=== PATIENT | female | born 1995 | race Caucasian/White ===

== ENCOUNTER 2020-11-07 13:32 | Outpatient (CLI) | payer OTHER, SELFPAY ==
--- NOTE | ~2020-11-07 | US_ITS ---
US breast RT limited DATE: 11/07/2020 14:11 INDICATION: Right breast pain for 6 months at 9:00, worse the past 2 weeks. TECHNIQUE: High resolution ultrasound imaging of the lateral half of the right breast COMPARISON: None FINDINGS: No suspicious mass or shadowing, cyst or other significant sonographic finding is noted. IMPRESSION: BI-RADS Category 1: Negative Reviewed, dictated and finalized at [facility]. Reviewed, dictated and finalized at location A. GAGE PROCESSOR
== END 2020-11-07 13:33 | disposition home or self-care (01) ==
DX: N64.4 Mastodynia (principal)
CPT/HCPCS: 76642

== ENCOUNTER 2023-11-07 08:22 | Emergency (ER) | payer BC, SELFPAY ==
--- NOTE | 2023-11-07 08:30 | ED.URI ---
HPI - URI/Sore Throat General Chief Complaint: Upper Respiratory Infection Stated Complaint: Short of Breath, Wheezing Time Seen by Provider: 11/07/23 08:30 Source: patient Mode of arrival: ambulatory Limitations: no limitations History of Present Illness HPI Narrative: Patient is a 20-year-old female that presents with cough and increased wheezing. Patient has been using her albuterol inhaler, nebulizers, Symbicort, and allergy medicine. Patient is 18 weeks . Has previously seen a heat treater but insurance changed and can no longer see provider. Patient has new PCP appointment on Saturday for referral to pulmonology. Patient denies any fever, chills, congestion, sore throat. Related Data Home Medications Medication Instructions Recorded Confirmed albuterol sulfate 2.5 mg/3 mL mg 11/07/23 (0.083 %) solution for nebulization albuterol sulfate 90 mcg/actuation inhalation 11/07/23 aerosol inhaler budesonide-formoterol HFA 160 inhalation 11/07/23 mcg-4.5 mcg/actuation aerosol inhaler epinephrine 0.3 mg/0.3 mL 11/07/23 injection, auto-injector montelukast 10 mg tablet mg 11/07/23 sertraline 50 mg tablet mg 11/07/23 Allergies Allergy/AdvReac Type Severity Reaction Status Date / Time Sulfa (Sulfonamide Allergy Unknown unknown Verified 06/03/19 19:51 Antibiotics) Review of Systems Review of Systems: All systems reviewed & are unremarkable except as noted in HPI and below Constitutional: Constitutional: Denies body ache(s), Denies chills, Denies fatigue, Denies fever(s), Denies headache(s), Denies malaise and Denies weakness Eyes: Eyes: Denies blurry vision, Denies itchy eyes and Denies loss of vision ENT: Denies otalgia, Denies headache(s), Denies nasal congestion, Denies sinus pain and Denies sore throat Cardiovascular: Cardiovascular: Denies chest pain, Denies irregular heart rhythm and Denies dyspnea Respiratory: Respiratory: Reports cough, Reports dyspnea and Reports wheezing Gastrointestinal: Gastrointestinal: Denies abdominal pain, Denies diarrhea, Denies nausea and Denies vomiting Musculoskeletal: Musculoskeletal: Denies back pain, Denies myalgias and Denies arthralgias Integumentary/Breasts: Skin/Breast: Denies pruritus and Denies rash Neurologic: Denies headache(s), Denies loss of vision and Denies weakness Psychiatric: Psychiatric: Reports no additional psychiatric complaints Endocrine: Endocrine: Denies fatigue Allergic/Immunologic: Allergic/Immunologic: Denies itchy eyes PMFSH Comments At time of signature, agree with nursing past medical, surgical, social and family history. There is no relevant family history pertinent to the presenting complaint. Exam Const: General: cooperative, healthy appearing, comfortable, no acute distress and well nourished Nutritional Appearance: well nourished Orientation/consciousness: patient oriented x3 Limitations: no limitations HENMT: Head: normal to inspection, normocephalic and atraumatic Ears: hearing grossly normal bilaterally, external ears normal, TM's normal bilaterally, EAC's normal and no periauricular adenopathy Face/Nose/Sinus: Normal external nose present, Normal nasal mucous membranes and turbinates present, normal facial exam, sinuses nontender and face symmetric Face and sinus: normal facial exam, sinuses nontender and face symmetric Mouth: Yes Normal oral and palatal mucosa present, Yes lip normal, Yes tongue normal, Yes Normal salivary glands and ducts present, Yes oropharynx normal and Yes moist mucous membranes Teeth and gingiva: dentition normal Throat: posterior oropharynx normal, tonsils normal and uvula midline Eyes: General: appearance normal, both eyes and all related structures Alignment and Position: alignment normal and position normal Periorbital: periorbital findings normal Eyelids: eyelids normal Pupils: Equal, round and reactive pupils present Neck: Neck: normal visual inspection, full ROM,
[2023-11-07 08:35] VITALS: BP 146/77; PULSE 77; RESP 18; TEMP 36.9; O2SAT 99
== END 2023-11-07 09:00 | disposition home or self-care (01) ==
PROVIDERS: Emergency Provider Nurse Practitioner Family; PCP Family Medicine
DX: O99.512 Diseases of the respiratory system complicating pregnancy, second trimester (principal); Z3A.18 18 weeks gestation of pregnancy; J06.9 Acute upper respiratory infection, unspecified; J45.41 Moderate persistent asthma with (acute) exacerbation; O99.891 Other specified diseases and conditions complicating pregnancy; R05.9 Cough, unspecified
CPT/HCPCS: 99213; G0463

== ENCOUNTER 2024-02-17 08:15 | Emergency (ER) | payer BC, SELFPAY ==
[2024-02-17 08:41] VITALS: BP 153/94; PULSE 80; RESP 20; TEMP 36.2; O2SAT 98
--- NOTE | 2024-02-17 08:44 | ED.ASTHMA ---
HPI - Asthma General Chief Complaint: Asthma Stated Complaint: Wheezing, SOB Time Seen by Provider: 02/17/24 08:50 Source: patient and RN notes reviewed Mode of arrival: ambulatory Limitations: no limitations History of Present Illness HPI Narrative: Your 28-year-old female who is 33 weeks presents with concern for asthma exacerbation. She reports her asthma has been worse over the last 3 days, she has been using her albuterol inhaler or nebulizer about every 2 hours. She has been in touch with her second hand paper machine as well as her power reactor supervisor. They suggested she come to urgent care. It is she last used her nebulized about 1 hour ago. She denies runny nose, reports chronic stuffy nose. Denies fever, aches, chills, sweats. MD complaint: shortness of breath Related Data Home Medications Medication Instructions Recorded Confirmed albuterol sulfate 2.5 mg/3 mL 2.5 mg inhalation PRN PRN 11/07/23 02/17/24 (0.083 %) solution for nebulization Shortness Of Breath Or Wheezing montelukast 10 mg tablet 10 mg PO HS 11/07/23 02/17/24 budesonide 160 mcg-glycopyr 9 2 inh inhalation DAILY 02/17/24 02/17/24 mcg-formot 4.8 mcg/actuation HFA inhaler (Breztri Aerosphere) vit#24-iron amino acid 1 tablet PO DAILY 02/17/24 02/17/24 chelat-folic acid 30 mg-975 mcg tablet Allergies Allergy/AdvReac Type Severity Reaction Status Date / Time Sulfa (Sulfonamide AdvReac Mild Rash Verified 02/17/24 08:30 Antibiotics) Review of Systems Review of Systems: CONSTITUTIONAL: Denies malaise, chills, sweats, or fever. EYES: Denies visual changes, redness, or discharge. ENT: Reports rhinorrhea, congestion, sinus pain, otalgia and sore throat. CARDIOVASCULAR: Denies chest pain, palpitations, or edema. RESPIRATORY: Reports cough, dyspnea, wheeze. MUSCULOSKELETAL: Denies myalgia. NEUROLOGIC: Denies headache. All systems reviewed & are unremarkable except as noted in HPI and below PMFSH Comments At time of signature, agree with nursing past medical, surgical, social and family history. There is no relevant family history pertinent to the presenting complaint Exam Narrative: GENERAL: Well-appearing, well-nourished, and in no acute distress. HEAD: Normocephalic EYES: PERRLA, conjunctivae clear ENT: Nares clear. Mucous membranes moist. No drooling, no hoarseness, no trismus, uvula midline. NECK: Supple. No lymphadenopathy CHEST: Expiratory wheeze throughout, breath sounds equal. No rhonchi, rales, or stridor. No respiratory distress, speaks in full sentences. HEART: Regular rate and rhythm. No murmur heard. SKIN: Warm, dry, no rash. NEURO: Alert and oriented x3. PSYCH: Normal mood and affect Course Course Emergency Course: Patient is aware of diagnosis, understands and agrees to treatment plan. Anticipatory guidance given. Patient agrees to follow-up as directed and is aware of reasons to seek care at the emergency department. Portions of this record may have been created with voice recognition software Level of Care: Express Care Visit Vital Signs Vital signs: Vital Signs Temperature 97.2 F L 02/17/24 08:41 Pulse Rate 80 02/17/24 08:41 Respiratory Rate 20 02/17/24 08:41 Blood Pressure 153/94 H 02/17/24 08:41 Pulse Oximetry 98 02/17/24 08:41 Oxygen Delivery Room Air 02/17/24 08:41 Temperature 97.2 F L 02/17/24 08:41 Pulse Rate 80 02/17/24 08:41 Respiratory Rate 20 02/17/24 08:41 Blood Pressure 153/94 H 02/17/24 08:41 Pulse Oximetry 98 02/17/24 08:41 Oxygen Delivery Room Air 02/17/24 08:41 Reviewed. MDM - Asthma MDM Narrative Medical decision making narrative: Exam findings show no acute concerns or changes; patient is non-toxic appearing and is in no distress. Patient is appropriate for outpatient treatment and follow-up. Lab Data Attestation: I reviewed the patient's lab results. Critical Care Time Critical Care Time Critical Care Time: No Discharg
== END 2024-02-17 08:57 | disposition home or self-care (01) ==
PROVIDERS: Emergency Provider Nurse Practitioner
DX: J45.901 Unspecified asthma with (acute) exacerbation (principal)
CPT/HCPCS: 99213; G0463

== ENCOUNTER 2024-03-12 10:03 | Outpatient (RCR) | payer BC, SELFPAY ==
[2024-03-10 15:09] VITALS: BP 129/80; PULSE 79
[2024-03-12] VITALS (7 sets, daily range): BP systolic 136–151; BP diastolic 78–87; PULSE 72–81; BMI 50.1
--- NOTE | ~2024-03-12 | US_ITS ---
EXAMINATION: US OB BPP wo non-stress DATE: 03/10/2024 14:38 INDICATION: Decreased movement. Third trimester. TECHNIQUE: Real-time pelvic ultrasound was performed. COMPARISON: None. FINDINGS: There is a single living fetus in vertex presentation. The placenta is anterior. heart rate is 130 beats per minute (bpm). Biophysical profile performed by the technologist: breathing (30 sec sustained breathing in 30 minutes): 0 out of 2 movement (3 gross body movements in 30 minutes): 2 out of 2 tone (one episode of cwlxgly-wevcfxkbz-toikaio limb movement): 2 out of 2 Amniotic fluid pocket (2 cm): 2 out of 2 Total score: 6 out of 8 IMPRESSION: 1. Single living fetus in vertex presentation. 2. Biophysical profile 6 out of 8. Reviewed, dictated and finalized at location [facility].
[2024-03-12 10:40] LABS: Basophils Percent Auto 0.2 % (0.2-1.2); Eosinophils Absolute Auto 0.3 K/mm3 (0-0.3); Eosinophils Percent Auto 3.9 % (0-4.4); Hematocrit 35.6 % (37.0-47.0); Hemoglobin 11.7 g/dL (12.0-15.0); Immature Granulocyte Absolute 0.05 K/mm3 (0.00-0.031); Immature Granulocyte Percent A 0.6 % (0-0.5); Lymphocytes Absolute Auto 1.67 K/mm3 (0.9-3.2); Lymphocytes Percent Auto 19.4 % (18.3-44.2); Mean Corpuscular HGB Conc 32.9 g/dl (32-36); Mean Corpuscular Hemoglobin 28.5 pg (26-34); Mean Corpuscular Volume 86.6 fl (80-100); Mean Platelet Volume 9.5 fl (7.4-10.4); Monocytes Absolute Auto 0.7 K/mm3 (0.1-0.6); Monocytes Percent Auto 8.2 % (2.6-8.5); Neutrophils Absolute Auto 5.8 K/mm3 (1.3-6.7); Neutrophils Percent Auto 67.7 % (45.5-73.1); Platelet Count Result 287 k/mm3 (150-375); Red Blood Count 4.11 M/mm3 (4.2-5.4); White Blood Count 8.6 K/mm3 (4.5-10.0)
[2024-03-12 10:52] LABS: Alanine Aminotransferase 11 U/L (6-35); Albumin Level 3.3 g/dL (3.5-5.1); Alkaline Phosphatase 107 U/L (38-126); Anion Gap 5 mmol/L (4-12); Aspartate Amino Transferase 18 U/L (14-36); Bilirubin,Total 0.4 mg/dL (0.2-1.3); Blood Urea Nitrogen 6 mg/dL (7-17); Carbon Dioxide 22 mmol/L (22-30); Chloride 108 mmol/L (98-107); Estimated Glomerular Filt Rate > 60; Glucose 84 mg/dL (65-110); Potassium 3.7 mmol/L (3.4-5.0); Sodium 135 mmol/L (137-145); Uric Acid 4.2 mg/dL (2.5-7.5)
[2024-03-12 10:54] LABS: Creatinine Urine 87.8 mg/dL; Total Protein Urine Random 13 mg/dL; Ur Ttl Prot Creatinine Ratio 0.15 mg/mg (0-0.20)
--- NOTE | 2024-03-12 11:37 | PC.NURSE ---
Dr. Argueta informed of BP's, lab results, and reactive NST. Orders for discharge received.
== END 2024-03-12 11:42 | disposition home or self-care (01) ==
LOC: ANHOBOP 10:03
PROVIDERS: Visit Provider Obstetrics & Gynecology
DX: O36.8130 Decreased fetal movements, third trimester, not applicable or unspecified (principal); Z3A.35 35 weeks gestation of pregnancy
CPT/HCPCS: 36415; 59025; 76819; 80053; 82570; 84156; 84550; 85025

== ENCOUNTER 2024-03-19 14:40 | Outpatient (CLI) | payer BC, SELFPAY ==
[2024-03-19] VITALS (9 sets, daily range): BP systolic 137–155; BP diastolic 65–94; PULSE 75–83
[2024-03-19 15:23] LABS: Basophils Percent Auto 0.1 % (0.2-1.2); Eosinophils Absolute Auto 0.3 K/mm3 (0-0.3); Eosinophils Percent Auto 3.2 % (0-4.4); Hematocrit 35.1 % (37.0-47.0); Hemoglobin 11.7 g/dL (12.0-15.0); Immature Granulocyte Absolute 0.04 K/mm3 (0.00-0.031); Immature Granulocyte Percent A 0.4 % (0-0.5); Lymphocytes Absolute Auto 1.75 K/mm3 (0.9-3.2); Lymphocytes Percent Auto 19.5 % (18.3-44.2); Mean Corpuscular HGB Conc 33.3 g/dl (32-36); Mean Corpuscular Hemoglobin 28.5 pg (26-34); Mean Corpuscular Volume 85.6 fl (80-100); Mean Platelet Volume 9.5 fl (7.4-10.4); Monocytes Absolute Auto 0.7 K/mm3 (0.1-0.6); Monocytes Percent Auto 7.5 % (2.6-8.5); Neutrophils Absolute Auto 6.2 K/mm3 (1.3-6.7); Neutrophils Percent Auto 69.3 % (45.5-73.1); Platelet Count Result 322 k/mm3 (150-375); Red Cell Distribution Width 13.1 % (11.5-14.5)
[2024-03-19 15:35] LABS: Alanine Aminotransferase 12 U/L (6-35); Albumin Level 3.3 g/dL (3.5-5.1); Alkaline Phosphatase 114 U/L (38-126); Anion Gap 4 mmol/L (4-12); Aspartate Amino Transferase 21 U/L (14-36); Bilirubin,Total 0.4 mg/dL (0.2-1.3); Blood Urea Nitrogen 5 mg/dL (7-17); Calcium 8.6 mg/dL (8.4-10.2); Carbon Dioxide 20 mmol/L (22-30); Chloride 110 mmol/L (98-107); Estimated Glomerular Filt Rate > 60; Glucose 95 mg/dL (65-110); Potassium 3.7 mmol/L (3.4-5.0); Sodium 134 mmol/L (137-145)
[2024-03-19 15:46] LABS: Appearance Urine Clear (Clear); Bacteria Urine Rare /hpf; Bilirubin Urine Negative (Negative); Blood Urine Negative (Negative); Color Urine Yellow (Yellow); Glucose Urine UA Negative (Negative); Ketones Urine 1+ mg/dL (Negative); Leukocyte Esterase Ur Trace LEU/UL (Negative); Nitrate Urine Negative (Negative); Non Pathogenic Casts 0-2; Protein Urine Negative (Negative); RBC Urine 0-2 /hpf (0-2); Specific Grav Ur 1.012 (1.001-1.035); Squamous Epithelial Cell Urine Moderate /hpf (Few); Urobilinogen Urine 0.2 mg/dL (<2.0); WBC Urine 0-5 /hpf (0-3)
[2024-03-19 15:58] LABS: Creatinine Urine 81.4 mg/dL; Total Protein Urine Random 12 mg/dL; Ur Ttl Prot Creatinine Ratio 0.15 mg/mg (0-0.20)
[2024-03-19 16:17] LABS: Add Urine Microscopic? YES
== END 2024-03-19 17:00 | disposition home or self-care (01) ==
LOC: ANHOBOP 14:44 → ANHLDR 14:45
PROVIDERS: Visit Provider Obstetrics & Gynecology
DX: O13.9 Gestational [pregnancy-induced] hypertension without significant proteinuria, unspecified trimester (principal); Z3A.00 Weeks of gestation of pregnancy not specified
CPT/HCPCS: 36415; 59025; 80053; 81001; 82570; 84156; 84550; 85025; 99199

== ENCOUNTER 2024-03-30 16:48 | Inpatient (IN) | payer BC, SELFPAY ==
[2024-03-30] VITALS (64 sets, daily range): BP systolic 139–184; BP diastolic 79–111; PULSE 73–101; O2SAT 96–100; BMI 50.8
[2024-03-30 17:28] LABS: Basophils Percent Auto 0.1 % (0.2-1.2); Eosinophils Absolute Auto 0.3 K/mm3 (0-0.3); Eosinophils Percent Auto 3.1 % (0-4.4); Hematocrit 36.1 % (37.0-47.0); Hemoglobin 12.2 g/dL (12.0-15.0); Immature Granulocyte Absolute 0.03 K/mm3 (0.00-0.031); Immature Granulocyte Percent A 0.3 % (0-0.5); Lymphocytes Absolute Auto 1.83 K/mm3 (0.9-3.2); Mean Corpuscular HGB Conc 33.8 g/dl (32-36); Mean Corpuscular Hemoglobin 28.7 pg (26-34); Mean Corpuscular Volume 84.9 fl (80-100); Mean Platelet Volume 9.6 fl (7.4-10.4); Monocytes Absolute Auto 0.7 K/mm3 (0.1-0.6); Monocytes Percent Auto 7.7 % (2.6-8.5); Neutrophils Absolute Auto 5.9 K/mm3 (1.3-6.7); Neutrophils Percent Auto 67.8 % (45.5-73.1); Platelet Count Result 318 k/mm3 (150-375); Red Blood Count 4.25 M/mm3 (4.2-5.4); White Blood Count 8.7 K/mm3 (4.5-10.0)
--- NOTE | 2024-03-30 17:44 | LDADM ---
This patient, Georgina Murrell, was admitted to Labor/Delivery/Recovery 108 on 03/30/24 at 16:48. Plans for labor, pain management and were discussed with patient. Patient/family oriented to hospital policies and general routines including ID bracelet, bed and alarms, visiting hours, pain management, procedures, bathroom and other care routines, personal items, smoking policy, room service/diet and guest tray routines, security routines, and visiting hours. Patient/Family are encouraged to report perceived risks to care and to ask questions if they do not understand what they are told or what they should do. See OBIX for further documentation.
[2024-03-30 18:35] LABS: HIV 1/2 Ab P24 Ag Result Negative (Negative)
[2024-03-30] MEDS: DINOPROSTONE 10 MG VAG INSERT VAGINAL (18:35)
[2024-03-30 19:37] LABS: Alanine Aminotransferase 13 U/L (6-35); Albumin Level 3.4 g/dL (3.5-5.1); Alkaline Phosphatase 141 U/L (38-126); Anion Gap 6 mmol/L (4-12); Aspartate Amino Transferase 22 U/L (14-36); Bilirubin,Total 0.3 mg/dL (0.2-1.3); Blood Urea Nitrogen 7 mg/dL (7-17); Calcium 9.1 mg/dL (8.4-10.2); Carbon Dioxide 20 mmol/L (22-30); Chloride 109 mmol/L (98-107); Estimated CRCL calculation 203 ml/min; Estimated Glomerular Filt Rate > 60; Glucose 99 mg/dL (65-110); Potassium 3.6 mmol/L (3.4-5.0); Sodium 135 mmol/L (137-145); Uric Acid 3.6 mg/dL (2.5-7.5)
[2024-03-30] MEDS: LABETALOL HCL INJ 100 MG/20 ML VIAL 20 MG IV PUSH (20:30)
[2024-03-30] MEDS: LABETALOL HCL INJ 100 MG/20 ML VIAL 40 MG IV PUSH ×2 (20:46→23:12)
[2024-03-30] MEDS: FAMOTIDINE 20 MG/2 ML VIAL IV PUSH (21:32)
[2024-03-31] VITALS (353 sets, daily range): BP systolic 108–192; BP diastolic 59–116; PULSE 59–112; TEMP 36.3–37.6; O2SAT 93–100
[2024-03-31] MEDS: ACETAMINOPHEN 500 MG TABLET 1000 MG PO ×2 (01:12→09:19)
[2024-03-31] MEDS: LABETALOL HCL INJ 100 MG/20 ML VIAL 40 MG IV PUSH ×2 (03:31→19:48)
[2024-03-31] MEDS: LACTATED RINGERS 1,000 ML 125 ML IV CONT ×3 (05:45→18:01)
[2024-03-31] MEDS: OXYTOCIN 30 UNITS/NS 500 ML 30 UNITS/500 ML BAG 6 UNITS IV CONT (05:45)
[2024-03-31] MEDS: NIFEdipine 30 MG TAB.ER.24 PO (06:29)
--- NOTE | 2024-03-31 07:39 | WPDANESEPP ---
Anes - Eval Pre Procedure Procedure: labor epidural Date/Time: 03/31/24 07:39 Surgeon: stephanie Preop Diagnosis: pain during labor Pre Op Diagnosis: Induction of Labor Patient Data Age: 29 Gender: F Height: 1.68 m Weight: 143 kg Last Vital Signs Temp 36.6 C 03/31/24 01:48 Pulse 68 03/31/24 07:31 BP 161/82 H 03/31/24 07:31 Pulse Ox 100 03/31/24 06:56 O2 Del Method Room Air 03/30/24 17:42 Allergies Allergy/AdvReac Type Severity Reaction Status Date / Time tree nut Allergy Severe Swelling Verified 03/13/24 13:27 of Lip/Tongue/Throat shellfish derived Allergy Unknown Unknown Verified 03/13/24 13:27 Sulfa (Sulfonamide AdvReac Mild Rash Verified 03/13/24 13:27 Antibiotics) Home Medications Medication Instructions Recorded Confirmed Type albuterol sulfate 2.5 mg/3 mL 2.5 mg inhalation PRN PRN 11/07/23 03/30/24 History (0.083 %) solution for nebulization Shortness Of Breath Or Wheezing albuterol sulfate 90 mcg/actuation 2 puff inhalation QID PRN 11/07/23 03/30/24 Rx aerosol inhaler shortness of breath or wheezing #6.7 grams montelukast 10 mg tablet 10 mg PO HS 11/07/23 03/30/24 History budesonide 160 mcg-glycopyr 9 2 inh inhalation DAILY 02/17/24 03/30/24 History mcg-formot 4.8 mcg/actuation HFA inhaler (Breztri Aerosphere) vit#24-iron amino acid 1 tablet PO DAILY 02/17/24 03/30/24 History chelat-folic acid 30 mg-975 mcg tablet sertraline 100 mg tablet 100 mg PO DAILY 03/13/24 03/13/24 History albuterol 90 mcg-budesonide 80 inh inhalation 4-6XD PRN Wheezing 03/30/24 History mcg/actuation HFA aerosol inhaler (Airsupra) Laboratory Tests 03/30/24 03/30/24 17:03 19:04 WBC 8.7 K/mm3 (4.5-10.0) RBC 4.25 M/mm3 (4.2-5.4) Hgb 12.2 g/dL (12.0-15.0) Hct 36.1 L % (37.0-47.0) MCV 84.9 fl (80-100) MCH 28.7 pg (26-34) MCHC 33.8 g/dl (32-36) RDW 13.0 % (11.5-14.5) Plt Count 318 k/mm3 (150-375) MPV 9.6 fl (7.4-10.4) Immature Gran % (Auto) 0.3 % (0-0.5) Neut % (Auto) 67.8 % (45.5-73.1) Lymph % (Auto) 21.0 % (18.3-44.2) Door % (Auto) 7.7 % (2.6-8.5) Eos % (Auto) 3.1 % (0-4.4) Baso % (Auto) 0.1 L % (0.2-1.2) Lymph # (Auto) 1.83 K/mm3 (0.9-3.2) Door # (Auto) 0.7 H K/mm3 (0.1-0.6) Eos # (Auto) 0.3 K/mm3 (0-0.3) Baso # (Auto) 0.0 K/mm3 (0.0-0.1) Abs Immat Gran (auto) 0.03 K/mm3 (0.00-0.031) Absolute Neuts (auto) 5.9 K/mm3 (1.3-6.7) Absolute Nucleated RBC 0.000 K/mm3 (0.0-0.012) Nucleated RBC % 0.0 % (0.0-0.2) Sodium 135 L mmol/L (137-145) Potassium 3.6 mmol/L (3.4-5.0) Chloride 109 H mmol/L (98-107) Carbon Dioxide 20 L mmol/L (22-30) Anion Gap 6 mmol/L (4-12) BUN 7 mg/dL (7-17) Creatinine 0.50 L mg/dL (0.7-1.0) Estim Creat Clear Calc 203 ml/min Estimated GFR > 60 (59 - ) Glucose 99 mg/dL (65-110) Uric Acid 3.6 mg/dL (2.5-7.5) Calcium 9.1 mg/dL (8.4-10.2) Total Bilirubin 0.3 mg/dL (0.2-1.3) AST 22 U/L (14-36) ALT 13 U/L (6-35) Alkaline Phosphatase 141 H U/L (38-126) Total Protein 6.0 L g/dL (6.3-8.2) Albumin 3.4 L g/dL (3.5-5.1) RPR Pending HIV 1&2 Ab/P24 Ag 4thGn Negative (Negative) Blood Type A Positive Antibody Screen Negative Patient hx anesthesia problems: none Family hx anesthesia problems: none Results Review: All pre-operative results and documents have been reviewed as part of the pre-operative evaluation. [facility] Past Medical History Medical History (Updated 03/31/24 @ 07:39 by Dana Brooks CRNA) Asthma Depression IUP (intrauterine ), incidental Morbid obesity with BMI of 50.0-59.9, adult Family History
--- NOTE | 2024-03-31 08:54 | PM.IMHP ---
H&P: HPI History of Present Illness Date/Time: 03/31/24 08:54 Chief Complaint: Here for induction of labor Narrative: 29 y/o at 38 4/7 weeks with CHTN, now with worsening bp control. Also has anxiety, asthma, and GERD. GBS neg. Cervidil last night, has been withdrawn. Has received several doses of labetalol IV, and one dose of Procardia XL 30 this morning. Now she has a headache. Review of Systems Review of Systems: All systems reviewed & are unremarkable except as noted in HPI and below PMFSH Past Medical History Medical History Asthma Depression IUP (intrauterine ), incidental Morbid obesity with BMI of 50.0-59.9, adult Family History Family History Father Diabetes mellitus Grandparent Lung cancer Grandparent Ovarian cancer Social History Social History Smoking status: Never smoker Substance use: never Do You Feel Safe in your Home?: Yes Lack of Transportation: No Lack of Food: Never True Current Housing: I Have Housing Concerned About Future Housing: No Difficulty Paying Gas/Electric Bills: No Difficulty Paying for Meds: No Currently Unemployed: No Education: Bachelor's Degree Difficulty w/ Childcare or Family Care: No Spiritual care concerns: No Meds Home Medications and Allergies Home Medications Medication Instructions Recorded Confirmed Type albuterol sulfate 2.5 mg/3 mL 2.5 mg inhalation PRN PRN 11/07/23 03/30/24 History (0.083 %) solution for nebulization Shortness Of Breath Or Wheezing albuterol sulfate 90 mcg/actuation 2 puff inhalation QID PRN 11/07/23 03/30/24 Rx aerosol inhaler shortness of breath or wheezing #6.7 grams montelukast 10 mg tablet 10 mg PO HS 11/07/23 03/30/24 History budesonide 160 mcg-glycopyr 9 2 inh inhalation DAILY 02/17/24 03/30/24 History mcg-formot 4.8 mcg/actuation HFA inhaler (Breztri Aerosphere) vit#24-iron amino acid 1 tablet PO DAILY 02/17/24 03/30/24 History chelat-folic acid 30 mg-975 mcg tablet sertraline 100 mg tablet 100 mg PO DAILY 03/13/24 03/13/24 History albuterol 90 mcg-budesonide 80 inh inhalation 4-6XD PRN Wheezing 03/30/24 History mcg/actuation HFA aerosol inhaler (Airsupra) Allergies Allergy/AdvReac Type Severity Reaction Status Date / Time tree nut Allergy Severe Swelling Verified 03/13/24 13:27 of Lip/Tongue/Throat shellfish derived Allergy Unknown Unknown Verified 03/13/24 13:27 Sulfa (Sulfonamide AdvReac Mild Rash Verified 03/13/24 13:27 Antibiotics) Vital Signs Vital Signs - 24 hr 03/30/24 17:42 03/30/24 17:46 03/30/24 18:16 Temperature Pulse Rate 78 74 Blood Pressure 184/100 H 180/84 H Pulse Oximetry Oxygen Delivery Room Air 03/30/24 18:30 03/30/24 18:46 03/30/24 19:16 Temperature Pulse Rate 78 73 76 Blood Pressure 177/96 H 163/79 H 163/95 H Pulse Oximetry Oxygen Delivery 03/30/24 19:30 03/30/24 19:46 03/30/24 20:00 Temperature Pulse Rate 78 75 80 Blood Pressure 180/96 H 168/93 H 173/92 H Pulse Oximetry Oxygen Delivery 03/30/24 20:15 03/30/24 20:27 03/30/24 20:32 Temperature Pulse Rate 90 Blood Pressure 155/111 H Pulse Oximetry 100 98 Oxygen Delivery 03/30/24 20:37 03/30/24 20:40 03/30/24 20:42 Temperature Pulse Rate 82 Blood Pressure 168/97 H Pulse Oximetry 98 99 Oxygen Delivery 03/30/24 20:47 03/30/24 20:50 03/30/24 20:52 Temperature Pulse Rate 90 Blood Pressure 176/97 H Pulse Oximetry 98 98 Oxygen Delivery 03/30/24 20:56 03/30/24 20:57 03/30/24 21:00 Temperature Pulse Rate 85 85 Blood Pressure 165/93 H 164/94 H Pulse Oximetry 98 Oxygen Delivery 03/30/24 21:02 03/30/24 21:04 03/30/24 21:09 Temperature Pulse Rate Blood
[2024-03-31 11:42] LABS: Rapid Plasma Reagin Non-Reactive (NonReactive)
--- NOTE | 2024-03-31 13:19 | PM.OBPNLAB ---
Pain Control Date/time seen: 03/31/24 13:19 Comments: Comfortable with epidural. BP 140/80 NST reactive TOCO: contractions every 2-4 min Cervix 2/50/-2 Continue labor
[2024-03-31] MEDS: FAMOTIDINE 20 MG/2 ML VIAL IV PUSH (14:24)
[2024-03-31] MEDS: LORATADINE 10 MG TABLET (16:50)
--- NOTE | 2024-03-31 18:13 | PM.OBPNLAB ---
Pain Control Date/time seen: 03/31/24 18:13 Comments: Comfortable. Has headache intermittently. Also bp seems to increase with intermittent anxiety. Afebrile. BP 140/80 most the day, then recently 170/90 when anxiety flared. NST reactive TOCO: contractions every 2-3 min Cervix 4/80/-2 Continue labor. Try Fioricet.
[2024-03-31] MEDS: ACETAMINOPHEN/BUTALBITAL/CAFFEINE 325-50-40 MG TABLET (FIORICET) 1 TAB PO (18:55)
[2024-03-31] MEDS: ONDANSETRON INJ 4 MG/2 ML VIAL IV PUSH (19:02)
[2024-03-31] MEDS: LABETALOL HCL INJ 100 MG/20 ML VIAL 20 MG IV PUSH (19:25)
[2024-03-31] MEDS: MAGNESIUM SULF 4 GM/WATER100ML 4 GM/100 ML BAG IVPB (22:38)
[2024-03-31] MEDS: MAGNESIUM SULF 20GM/WATER500ML 500 ML 50 MG IV CONT (23:07)
[2024-04-01] VITALS (217 sets, daily range): BP systolic 100–193; BP diastolic 50–113; PULSE 69–135; RESP 14–16; TEMP 35.9–38.7; O2SAT 93–100
[2024-04-01] MEDS: ONDANSETRON INJ 4 MG/2 ML VIAL IV PUSH ×3 (00:28→22:56)
[2024-04-01] MEDS: LABETALOL HCL INJ 100 MG/20 ML VIAL 20 MG IV PUSH (00:28)
[2024-04-01] MEDS: AMPICILLIN 2 GM/NS 100 ML 2 GM/100 ML BAG IVPB (00:29)
[2024-04-01] MEDS: LABETALOL HCL INJ 100 MG/20 ML VIAL 40 MG IV PUSH (00:41)
[2024-04-01] MEDS: LABETALOL HCL INJ 100 MG/20 ML VIAL 80 MG IV PUSH (01:03)
[2024-04-01] MEDS: ACETAMINOPHEN 500 MG TABLET 1000 MG PO ×2 (02:30→08:42)
[2024-04-01] MEDS: AMPICILLIN 1 GM/NS 50 ML 1 GM/50 ML BAG IVPB ×3 (04:41→12:30)
[2024-04-01] MEDS: LACTATED RINGERS 1,000 ML 75 ML IV CONT (04:41)
[2024-04-01] MEDS: MAGNESIUM SULF 20GM/WATER500ML 500 ML 50 MG IV CONT ×3 (08:37→21:03)
--- NOTE | 2024-04-01 08:58 | PM.OBPNLAB ---
Pain Control Date/time seen: 04/01/24 08:58 Comments: Comfortable. She is now receiving ampicillin and magnesium. AVSS. Had temp of 100.4 last evening, but no fever since. BP currently 116/88 NST good variability TOCO: contractions every 2-3 min Cervix 7-8/100/0 Continue labor.
[2024-04-01] MEDS: OXYTOCIN 30 UNITS/NS 500 ML 30 UNITS/500 ML BAG 6 UNITS IV CONT (10:11)
[2024-04-01] MEDS: FUROSEMIDE INJ 40 MG/4 ML VIAL 20 MG IV PUSH (11:52)
--- NOTE | 2024-04-01 13:39 | PM.OBPNLAB ---
Pain Control Date/time seen: 04/01/24 13:39 Comments: Still comfortable. AVSS NST no decelerations TOCO: contractions every 2-3 min Cervix 8/100/0 (unchanged) Offered primary delivery. She understands risks of surgery to include risks of anesthesia, risks of pain, infection, bleeding, blood products, thromboembolic phenomena and damage to adjacent structures such as bowel, bladder, ureters, blood vessels and nerves. She understands all these risks and elects to proceed with surgery.
[2024-04-01] MEDS: AZITHROMYCIN 500 MG/NS 250 ML 500 MG/250 ML BAG 250 MG IVPB (13:55)
[2024-04-01] MEDS: FAMOTIDINE 20 MG/2 ML VIAL IV PUSH (13:55)
[2024-04-01] MEDS: ceFAZolin 1 GM/NS 50 ML 1 GM/50 ML BAG IVPB (14:13)
[2024-04-01] MEDS: ceFAZolin 2 GM/D5W 50 ML 2 GM/50 ML BAG 100 GM (14:13)
--- NOTE | 2024-04-01 15:18 | W.PM.OBCSD ---
OB - Delivery Note Procedure Delivery date: 04/01/24 Pre-op diagnosis: Arrest of Dilation, Chronic Hypertension and Other (IUP at 38 5/7; arrest of dilation; CHTN) Post-op Diagnosis: Same Induction method: Per Cervidil Protocol Delivery augmentation: Rupture of Membranes and Pitocin Delivery monitor: External FHT, External Uterine and Internal Uterine Procedure Performed: Primary Surgeon: Bolivar Argueta MD Anesthesia type: Epidural Description of Procedure/Findings: Findings: Normal-appearing uterus, tubes and ovaries. Techniques: The patient was taken to the operating room where she was prepared and draped in the usual sterile fashion in dorsal supine position with a leftward tilt. She received cefazolin preoperatively. Spinal anesthesia was found to be adequate. A Pfannenstiel skin incision was made and carried through to the underlying layer of the fascia. The fascia was incised in the midline and the incision was extended laterally. The fascia was dissected free of the underlying rectus muscles. The rectus muscles were in the midline. The peritoneum was identified, tented up and entered sharply. The peritoneal incision was extended superiorly and inferiorly with good visualization of the bladder. The bladder blade was placed. The vesicouterine peritoneum was identified, tented up and entered sharply. The incision was extended laterally and the bladder flap was developed. The bladder blade was replaced. The uterus was then incised sharply in a transverse fashion along the lower uterine segment. The incision was extended laterally. The 's head was delivered atraumatically to the sterile field, followed by the body. The nose and mouth were bulb suctioned. After a delay, the cord was clamped and cut. The infant was handed off the field. Cord blood was collected. The placenta was removed manually and was passed off the field. The uterus was exteriorized and cleared of all clots and debris. The uterine incision was reapproximated using 0 Monocryl in a running, locked fashion. Excellent hemostasis resulted as did excellent reapproximation of the normal anatomy. The uterus was returned the abdomen. The pelvis was irrigated copiously with warmed normal saline. Rigorous hemostasis was assured. The fascial layer was reapproximated using 0 Vicryl in a running fashion. The skin was closed with a running, subcuticular stitch of 4 0 Vicryl. Dermaflex was applied externally. Sponge, lap, needle and instrument counts were correct. The patient was taken to the recovery room in stable condition. The went to the nursery in stable condition. I was present and scrubbed the entire procedure. Specimen: Yes (Placenta, cord blood) Estimated Blood Loss: 1,100 Urine Output: 350 Drains: Yes (Strong) Packing: No Pathology: Yes (Placenta) Complications: None Condition: Stable Disposition: PACU [place] Baby Date of : 04/01/24 Time of : 14:41 Weeks of gestation at delivery: 38 Infant gender: Female Weight (pounds): 8 Weight (ounces): 11 presentation: vertex position: Other (occiput posterior) Placenta delivery description: Manual Removal and Normal Configuration Cord Vessel Description: 3 Vessels and Delayed Cord Clamping
--- NOTE | 2024-04-01 15:21 | PM.OBDSVD ---
DS: Admitting Diagnosis Discharge Date 04/04/2024 <Orlando Flores MD - Last Filed: 04/04/24 05:39> Admitting Diagnosis IUP at 38 5/7 weeks CHTN <Bolivar Argueta MD - Last Filed: 04/07/24 12:15> DS: Discharge Diagnosis Discharge Diagnosis (1) delivery delivered: Code(s): O82 - Encounter for delivery without indication <Bolivar Argueta MD - Last Filed: 04/07/24 12:15> Status: Acute <Bolivar Argueta MD - Last Filed: 04/07/24 12:15> (2) Chronic hypertension affecting : Code(s): O10.919 - Unspecified pre-existing hypertension complicating , unspecified trimester <Bolivar Argueta MD - Last Filed: 04/07/24 12:15> Status: Acute <Bolivar Argueta MD - Last Filed: 04/07/24 12:15> OB - DS: Summary OB Procedures : PIH Mgmt <Bolivar Argueta MD - Last Filed: 04/07/24 12:15> OB Procedures Intrapartum: <Bolivar Argueta MD - Last Filed: 04/07/24 12:15> OB Procedures: : None <Boilvar Argueta MD - Last Filed: 04/07/24 12:15> Peripartum Data Procedures: Procedures Operation Date: 04/01/24 14:00 <No data on this case meets the specified criteria> <Bolivar Argueta MD - Last Filed: 04/07/24 12:15> Time Spent with Patient Time attestation: Total time spent providing and/or coordinating discharge services: <Bolivar Argueta MD - Last Filed: 04/07/24 12:15> Discharge Plan Discharge Attending physician on discharge: Bolivar Argueta <Bolivar Argueta MD - Last Filed: 04/07/24 12:15> Bolivar Argueta <Orlando Flores MD - Last Filed: 04/04/24 05:39> Consulting providers: Orlando Pepe; Dana Brooks; Bolivar Argueta <Bolivar Argueta MD - Last Filed: 04/07/24 12:15> Discharging Clinician: Bolivar Argueta <Bolivar Argueta MD - Last Filed: 04/07/24 12:15> Bolivar Argueta <Orlando Flores MD - Last Filed: 04/04/24 05:39> Patient Disposition: Home, Self-Care <Bolivar Argueta MD - Last Filed: 04/07/24 12:15> Activity: may shower, may drive after 2 weeks and pelvic rest <Bolivar Argueta MD - Last Filed: 04/07/24 12:15> may shower, may drive after 2 weeks and pelvic rest <Orlando Flores MD - Last Filed: 04/04/24 05:39> Diet: regular <Bolivar Argueta MD - Last Filed: 04/07/24 12:15> regular <Orlando Flores MD - Last Filed: 04/04/24 05:39> Wound Care Instructions: incision open to air <Bolivar Argueta MD - Last Filed: 04/07/24 12:15> incision open to air <Orlando Flores MD - Last Filed: 04/04/24 05:39> Discharge Instructions: Call or return if temperature above 100.4? F, increased abdominal pain, increased vaginal bleeding or any new problems. Education: Mom and Baby Guide Given to: Mother Follow-Up: Call your delivering provider's office for an appointment to be seen in: 4 Weeks Mom and baby should come to the [facility] for the follow-up appointment. Appointment Date/Time: April 07, 2024 at 11:00 am What to expect at your follow-up visit: Blood Pressure Check Physical Assessment Call [phone] if you are unable to keep your appointment time. BREAST CARE: * Wear a snug supportive bra. * For engorgement discomfort: Breast Feeding: * Apply warm moist washcloths * Express milk as needed to relieve engorgement * Wear loose clothing * For sore nipples: * Identify correct latch-on * Apply warm moist washcloths before and after nursing * Air dry nipples after nursing * May apply Lansinoh cream to nipples ABDOMINAL INCISION: * Allow incision to air dry * Do NOT use lotions for powders on your incision * When showering, allow soap and water to run over the incision, but do not wash incision PERINEAL CARE: * Until bleeding
[2024-04-01] MEDS: LIDOCAINE 5% PATCH 1 PATCH TRANSDERM (16:25)
[2024-04-01] MEDS: fentaNYL CITRATE INJ (*CRX) 100 MCG/2 ML VIAL 25 MCG IV PUSH ×2 (17:26→17:34)
--- NOTE | 2024-04-01 17:44 | PC.NURSE ---
Patient transferred to post room #290 via stretcher. Support person present. Oriented to unit, room, information board, rooming in, admission packet and security measures. Patient verbalizes understanding.
[2024-04-01] MEDS: DOCUSATE SODIUM 100 MG CAPSULE PO (19:50)
[2024-04-01] MEDS: ACETAMINOPHEN 325 MG TABLET 650 MG PO (19:50)
[2024-04-01] MEDS: KETOROLAC 15 MG/ML VIAL (*BKC) IV PUSH (19:50)
[2024-04-01] MEDS: SIMETHICONE 80 MG TAB.CHEW PO (19:50)
[2024-04-01] MEDS: MONTELUKAST SODIUM 10 MG TABLET PO (21:03)
[2024-04-02] VITALS (7 sets, daily range): BP systolic 128–147; BP diastolic 72–82; PULSE 65–99; RESP 16–18; TEMP 36.1–36.6; O2SAT 98–100
[2024-04-02] MEDS: KETOROLAC 15 MG/ML VIAL (*BKC) IV PUSH ×3 (01:32→14:39)
[2024-04-02] MEDS: ACETAMINOPHEN 325 MG TABLET 650 MG PO ×3 (01:32→14:40)
[2024-04-02] MEDS: HYDROcodone/acetaminophen (*CRX) 5-325 MG TABLET 1 TAB PO ×2 (05:23→22:26)
[2024-04-02 05:58] LABS: Basophils Absolute Auto 0.1 K/mm3 (0.0-0.1); Basophils Percent Auto 0.3 % (0.2-1.2); Eosinophils Percent Auto 0.2 % (0-4.4); Hematocrit 34.4 % (37.0-47.0); Hemoglobin 11.2 g/dL (12.0-15.0); Immature Granulocyte Absolute 0.27 K/mm3 (0.00-0.031); Immature Granulocyte Percent A 1.1 % (0-0.5); Lymphocytes Absolute Auto 1.59 K/mm3 (0.9-3.2); Lymphocytes Percent Auto 6.5 % (18.3-44.2); Mean Corpuscular HGB Conc 32.6 g/dl (32-36); Mean Corpuscular Hemoglobin 28.5 pg (26-34); Mean Corpuscular Volume 87.5 fl (80-100); Mean Platelet Volume 9.5 fl (7.4-10.4); Monocytes Absolute Auto 1.2 K/mm3 (0.1-0.6); Monocytes Percent Auto 4.9 % (2.6-8.5); Neutrophils Absolute Auto 21.2 K/mm3 (1.3-6.7); Platelet Count Result 329 k/mm3 (150-375); Red Blood Count 3.93 M/mm3 (4.2-5.4); Red Cell Distribution Width 13.6 % (11.5-14.5); White Blood Count 24.4 K/mm3 (4.5-10.0)
[2024-04-02] MEDS: MAGNESIUM SULF 20GM/WATER500ML 500 ML 50 MG IV CONT (06:40)
[2024-04-02] MEDS: SIMETHICONE 80 MG TAB.CHEW PO ×3 (08:41→17:19)
[2024-04-02] MEDS: DOCUSATE SODIUM 100 MG CAPSULE PO ×2 (08:41→17:19)
[2024-04-02] MEDS: MULTIVIT/MIN/PREN/FOL AC/IRON TABLET 1 TAB PO (08:42)
--- NOTE | 2024-04-02 08:48 | PM.OBPNVD ---
OB - PN: Subj Subjective Date/time seen: 04/02/24 08:48 Narrative: Pain OK. Tolerating diet. Baby was transferred. OB - PN: Obj Data Labs 04/02/24 05:41 03/30/24 19:04 Labs: Laboratory Results - last 24 hr 04/02/24 05:41 WBC 24.4 H RBC 3.93 L Hgb 11.2 L Hct 34.4 L MCV 87.5 MCH 28.5 MCHC 32.6 RDW 13.6 Plt Count 329 MPV 9.5 Immature Gran % (Auto) 1.1 H Neut % (Auto) 87.0 H Lymph % (Auto) 6.5 L Gentry % (Auto) 4.9 Eos % (Auto) 0.2 Baso % (Auto) 0.3 Lymph # (Auto) 1.59 Gentry # (Auto) 1.2 H Eos # (Auto) 0.0 Baso # (Auto) 0.1 Abs Immat Gran (auto) 0.27 H Absolute Neuts (auto) 21.2 H Absolute Nucleated RBC 0.000 Nucleated RBC % 0.0 OB - PN A/P Plan day: 1 Comments: A: POD#1, doing well. BP stable without antihypertensives. UO great. P: Stop magnesium. Watch bp. Routine care. Exam Narrative: AVSS I/O OK ABD soft, nontender, fundus firm. Incision c/d/i. EXT nontender
--- NOTE | 2024-04-02 09:00 | WPDANLDPN2 ---
Anes-Prog Note L&D Date/Time: 04/02/24 09:00 Neuro status: Neuro function grossly intact. Cardiovascular status: normal Respiratory status: normal Airway patency: baseline Mental status: baseline Post-Op hydration status: normal Vital Signs: Last Vital Signs Temp 36.1 C L 04/02/24 08:15 Pulse 86 04/02/24 08:15 Resp 18 04/02/24 08:15 BP 146/77 H 04/02/24 08:15 Pulse Ox 100 04/02/24 08:15 O2 Del Method Room Air 04/02/24 05:50 Pain score (VAS): 0 I/O: Intake & Output 04/01/24 04/02/24 04/02/24 23:59 07:59 15:59 Intake Total 500 1180.8 Output Total 1225 1300 325 Balance -725 -119.2 -325 Post-procedural complaints: none Patient feedback: Patient satisfied with anesthetic care.
--- NOTE | 2024-04-02 09:00 | WPDANLDNPN2 ---
Anes-Prog Note L&D-Neuraxial Date/Time: 04/02/24 09:00 Patient feedback: Patient satisfied with post-operative pain management.
[2024-04-02] MEDS: FLUTICASONE/UMECLIDIN/VILANTER 100-62.5-25 MCG ELLIPTA 1 PUFF INHALATION (10:00)
--- NOTE | 2024-04-02 11:12 | PC.NURSE ---
[id number]. Introductions were made to assess moms pumping plan. Upon entering the room, mom was pumping with her personal pump. Breast pump provided due to prior to meeting RN. Nipples assessed and measured for proper fit of the flange. Mom was using a 21 mm flange insert, nipples assessed and mom advised to go up a size to 24mm flange due to rubbing. Instructions given on cleaning, care, usage, that there should be no pain, pumping schedule for milk production, collection, and storage of human milk. Patient was assessed for correct placement,& to pump for comfort and nipple stretching/stimulation for adequate milk production every 3 hours (8 times in 24 hours) 1-2 times at night. Parents are encouraged to record the pumping schedule on the feeding sheet.?Mother voiced understanding of the education shared along with mom/baby guide and the pump measurement, flange fit handout for additional resource information. Reported to the Primary RN.
[2024-04-02] MEDS: HYDROcodone/acetaminophen (*CRX) 10-325 MG TABLET 1 TAB PO (13:16)
[2024-04-02] MEDS: LIDOCAINE 5% PATCH 1 PATCH TRANSDERM (17:21)
[2024-04-02] MEDS: MONTELUKAST SODIUM 10 MG TABLET PO (22:26)
[2024-04-02] MEDS: SERTRALINE HCL 50 MG TABLET 100 MG PO (22:26)
[2024-04-02] MEDS: IBUPROFEN 600 MG TABLET PO (22:26)
[2024-04-03] VITALS (8 sets, daily range): BP systolic 144–171; BP diastolic 78–96; PULSE 80–94; RESP 18–20; TEMP 36.6–36.8; O2SAT 95–98
[2024-04-03] MEDS: ACETAMINOPHEN 325 MG TABLET 650 MG PO ×4 (02:08→20:00)
[2024-04-03] MEDS: HYDROcodone/acetaminophen (*CRX) 5-325 MG TABLET 1 TAB PO ×3 (07:28→16:50)
[2024-04-03] MEDS: SIMETHICONE 80 MG TAB.CHEW PO ×3 (07:29→16:45)
[2024-04-03] MEDS: IBUPROFEN 600 MG TABLET PO ×3 (07:29→20:00)
[2024-04-03] MEDS: DOCUSATE SODIUM 100 MG CAPSULE PO ×2 (07:32→16:45)
--- NOTE | 2024-04-03 08:56 | PM.OBPNVD ---
OB - PN: Subj Subjective Date/time seen: 04/03/24 08:56 Narrative: Pain OK. Tolerating diet. OB - PN: Obj Data Labs 04/02/24 05:41 03/30/24 19:04 OB - PN A/P Plan day: 2 Comments: A: POD#2, doing well. CHTN with mildly elevated bp. P: Add labetalol 100 mg po bid. May go on pass to visit baby. Routine care. Try for discharged tomorrow. Exam Narrative: AVSS BP 145-155/90-100 I/O OK ABD soft, nontender, fundus firm. Incision c/d/i. EXT nontender
[2024-04-03] MEDS: FLUTICASONE/UMECLIDIN/VILANTER 100-62.5-25 MCG ELLIPTA 1 PUFF INHALATION (09:41)
[2024-04-03] MEDS: MULTIVIT/MIN/PREN/FOL AC/IRON TABLET 1 TAB PO (09:42)
[2024-04-03] MEDS: LABETALOL HCL 100 MG TABLET PO ×2 (09:42→20:00)
--- NOTE | 2024-04-03 11:20 | PC.NURSE ---
Pt left at 1120 on therapeutic pass to see baby at [facility] via wheelchair accompanied by .
--- NOTE | 2024-04-03 15:45 | PC.NURSE ---
Returned from therapeutic pass.
[2024-04-03] MEDS: SERTRALINE HCL 50 MG TABLET 100 MG PO (20:00)
[2024-04-03] MEDS: MONTELUKAST SODIUM 10 MG TABLET PO (20:00)
[2024-04-03] MEDS: HYDROcodone/acetaminophen (*CRX) 10-325 MG TABLET 1 TAB PO (22:05)
[2024-04-04] MEDS: HYDROcodone/acetaminophen (*CRX) 5-325 MG TABLET 1 TAB PO ×2 (04:30→10:14)
[2024-04-04] MEDS: IBUPROFEN 600 MG TABLET PO ×2 (04:30→10:14)
[2024-04-04] MEDS: ACETAMINOPHEN 325 MG TABLET 650 MG PO ×2 (04:30→10:14)
[2024-04-04 04:40] VITALS: BP 146/87; PULSE 91
--- NOTE | 2024-04-04 05:39 | PM.OBPNVD ---
OB - PN: Subj Subjective Date/time seen: 04/04/24 05:39 Patient comments: no complaints and pain well controlled baby status: doing well OB - PN: Obj Data Labs 04/02/24 05:41 03/30/24 19:04 OB - PN A/P Plan day: 3 Plan: routine care, discharge home and follow up 6 weeks (4) Time Spent With Patient Time: Total time spent is greater than 50% in coordination of care (as documented) at patient's floor/unit and/or counseling patient: Time with patient: less than 15 minutes Exam Const: General: cooperative, healthy appearing and comfortable Nutritional Appearance: average body habitus Orientation/consciousness: oriented to person, oriented to place and oriented to time HENMT: Head: normal to inspection Resp: Effort & Inspection: normal respiratory effort Cardio: Rate: regular rate Rhythm: regular rhythm Heart sounds: S1 normal heart sound present and S2 normal heart sound present GI: Inspection: normal to inspection and incision ( clean dry and intact)
[2024-04-04 08:45] VITALS: BP 164/93; PULSE 76; RESP 18; TEMP 36.7
[2024-04-04 09:27] VITALS: PULSE 76
[2024-04-04] MEDS: LABETALOL HCL 100 MG TABLET PO ×2 (09:27→11:20)
[2024-04-04] MEDS: MULTIVIT/MIN/PREN/FOL AC/IRON TABLET 1 TAB PO (09:27)
[2024-04-04] MEDS: DOCUSATE SODIUM 100 MG CAPSULE PO (09:28)
[2024-04-04] MEDS: SIMETHICONE 80 MG TAB.CHEW PO (09:28)
[2024-04-04] MEDS: FLUTICASONE/UMECLIDIN/VILANTER 100-62.5-25 MCG ELLIPTA 1 PUFF INHALATION (09:28)
[2024-04-04 11:10] VITALS: BP 160/103
[2024-04-04 11:20] VITALS: PULSE 86
[2024-04-04 12:20] VITALS: BP 148/81
[2024-04-07 10:42] VITALS: BP 153/92; PULSE 83; RESP 18; TEMP 37.1; O2SAT 100
== END 2024-04-04 12:34 | disposition home or self-care (01) | DRG 787 ==
LOC: ANHLDR 04-01 15:23 → ANHOB2 04-01 17:54
PROVIDERS: Admitting Provider Pediatrics; Visit Provider Obstetrics & Gynecology
PROC: 10D00Z1 Extraction of Products of Conception, Low, Open Approach (ICD-10-PCS; CPT 59514; principal; 2024-04-01 14:00)
DX: O10.92 Unspecified pre-existing hypertension complicating childbirth (principal); O75.2 Pyrexia during labor, not elsewhere classified; Z37.0 Single live birth; Z3A.38 38 weeks gestation of pregnancy; O62.1 Secondary uterine inertia; O99.52 Diseases of the respiratory system complicating childbirth; J45.909 Unspecified asthma, uncomplicated; O99.62 Diseases of the digestive system complicating childbirth; K21.9 Gastro-esophageal reflux disease without esophagitis; O99.344 Other mental disorders complicating childbirth; F41.9 Anxiety disorder, unspecified
CPT/HCPCS: 36415; 80053; 84550; 85025; 86592; 86703; 86850; 86900; 86901; 94640; A9270; G0432; J0290; J0456; J0690; J1100; J1885; J1940; J2274; J2405; J2590; J2795; J3010; J3475; J7120

== ENCOUNTER 2024-08-10 07:06 | Outpatient (RCR) | payer BC, SELFPAY ==
[2024-06-11 09:19] VITALS: BMI 42.0
== END 2024-08-31 08:29 | disposition home or self-care (01) ==
LOC: ANHWOC 07:06
PROVIDERS: Visit Provider Obstetrics & Gynecology
DX: O90.0 Disruption of cesarean delivery wound (principal)
CPT/HCPCS: 99212; 99213; A9270; G0463

== ENCOUNTER 2024-10-13 09:00 | Emergency (ER) | payer BC, SELFPAY ==
[2024-10-13 09:16] VITALS: BP 124/76; PULSE 82; RESP 18; TEMP 36.4; O2SAT 98
--- NOTE | 2024-10-13 09:35 | ED.URI ---
HPI - URI/Sore Throat General Chief Complaint: Upper Respiratory Infection Stated Complaint: cough (SOB) Congestion Time Seen by Provider: 10/13/24 09:35 Source: patient Mode of arrival: ambulatory Limitations: no limitations History of Present Illness HPI Narrative: 29-year-old female presents with complaint of cough, wheezing, shortness of breath with exertion for the past 9 days. History of asthma. Has been using albuterol inhaler and nebulizer treatments as prescribed. Reports that cough is getting progressively worse. Positive chills, fatigue. Taking hgoo-izy-kxjnjmg DayQuil NyQuil with no relief of symptoms. Increase in chest congestion. Patient concerned for pneumonia. All systems reviewed and negative except as noted above. Related Data Home Medications ?Medication ?Instructions ?Recorded ?Confirmed ?Last Taken ?Type albuterol sulfate 2.5 mg/3 mL 2.5 mg inhalation PRN PRN 11/07/23 06/11/24 03/28/24 07:00 History (0.083 %) solution for nebulization Shortness Of Breath Or Wheezing budesonide 160 mcg-glycopyr 9 2 inh inhalation DAILY 02/17/24 06/11/24 03/30/24 07:00 History mcg-formot 4.8 mcg/actuation HFA inhaler (Breztri Aerosphere) vit#24-iron amino acid 1 tablet PO DAILY 02/17/24 06/11/24 03/29/24 21:00 History chelat-folic acid 30 mg-975 mcg tablet sertraline 100 mg tablet 100 mg PO DAILY 03/13/24 06/11/24 03/30/24 07:00 History albuterol 90 mcg-budesonide 80 inh inhalation 4-6XD PRN Wheezing 03/30/24 03/30/24 07:00 History mcg/actuation HFA aerosol inhaler (Airsupra) norethindrone (contraceptive) 0.35 mg 10/13/24 Unknown History mg tablet (Jencycla) Allergies Allergy/AdvReac Type Severity Reaction Status Date / Time tree nut Allergy Severe Swelling Verified 10/13/24 09:19 of Lip/Tongue/Throat Sulfa (Sulfonamide Allergy Mild Rash Verified 10/13/24 09:19 Antibiotics) shellfish derived Allergy Unknown Unknown Verified 10/13/24 09:19 Review of Systems Review of Systems: CONSTITUTIONAL: Denies fever. reports chills, or sweats. EYES: Denies visual changes, redness, or discharge. ENT: reports rhinorrhea, congestion. Denies sore throat, or otalgia. CARDIOVASCULAR: Denies chest pain, palpitations, or edema. RESPIRATORY: reports cough, chest congestion, wheezing, dyspnea with exertion. GASTROINTESTINAL: Denies abdominal pain, nausea, vomiting, or diarrhea. GENITOURINARY: Denies dysuria or hematuria. SKIN: Denies rash or itching. MUSCULOSKELETAL: Denies back pain, joint pain, or myalgia. NEUROLOGIC: Denies headache, numbness, or weakness. PSYCHIATRIC: Denies anxiety or depression. All other systems reviewed are negative, except as documented in HPI. [facility] Past Medical History Medical History Asthma Depression IUP (intrauterine ), incidental Morbid obesity with BMI of 50.0-59.9, adult Family History Family History Father Diabetes mellitus Grandparent Lung cancer Grandparent Ovarian cancer Social History Social History Smoking status: Never smoker Substance use: never Do You Feel Safe in your Home?: Yes Lack of Transportation: No Lack of Food: Never True Current Housing: I Have Housing Concerned About Future Housing: No Difficulty Paying Gas/Electric Bills: No Difficulty Paying for Meds: No Currently Unemployed: No Education: Bachelor's Degree Difficulty w/ Childcare or Family Care: No Spiritual care concerns: No Comments At time of signature, agree with nursing past medical, surgical, social and family history. There is no relevant family history pertinent to the presenting complaint. Exam Narrative: GENERAL: This is a well-nourished, well-developed patient, in no apparent distress. HEAD: normocephalic, atraumatic. EYES: PERRL. Sclera clear/white. Vision is grossly intact. EARS: External ears normal, auditory canals clear and without drainage, TMs normal without perforation. Hearing grossly intact. NOSE: External nose normal with no obvious nasal discharge, nares without redness, no rhinorrhea. THROAT: Mucous membranes moist, posterior pharynx clear. NECK: Neck supple, non-tender without lymphadenopathy, masses or thyromegaly. CARDIOVASCULAR: Regular rate and rhythm without murmurs, gallops, or rubs. RESPIRATORY: mild expiratory wheeze throughout all lung kirby. Breath sounds equal bilaterally. No rales, or rhonchi. SKIN: warm, Dry, intact with no suspicious lesions or rash, good texture and turgor. NEURO: awake, alert, and oriented to person, place and time. There were no obvious focal neurologic abnormalities. EXTREMITIES: No joint tenderness, effusion, or edema noted. Course Course Level of Care: Express Care Visit Vital Signs Vital signs: Vital Signs Temperature 36.4 C 10/13/24 09:16 Pulse Rate 82 10/13/24 09:16 Respiratory Rate 18 10/13/24 09:16 Blood Pressure 124/76 10/13/24 09:16 Pulse Oximetry 98 10/13/24 09:16 Oxygen Delivery Room Air 10/13/24 09:16 Temperature 36.4 C 10/13/24 09:16 Pulse Rate 82 10/13/24 09:16 Respiratory Rate 18 10/13/24 09:16 Blood Pressure 124/76 10/13/24 09:16 Pulse Oximetry 98 10/13/24 09:16 Oxygen Delivery Room Air 10/13/24 09:16 Reviewed MDM - URI/Sore Throat MDM Narrative Medical decision making narrative: mild expiratory wheezes throughout all lung kirby on auscultation. History of asthma. Coughing, chest congestion for 9 days. Will prescribe antibiotic today as precaution due to comorbidities. Patient agrees with plan of care. Patient is currently . Patient is aware of diagnosis, understands and agrees to treatment plan. Anticipatory guidance given. Patient agrees to follow-up as directed and is aware of reasons to seek care at the emergency department. Portions of this record may have been created with voice recognition software Discharge Plan Discharge Clinical Impression: Upper respiratory infection with cough and congestion, Asthma exacerbation Patient Disposition: Home, Self-Care Condition: Stable Instructions: Upper Respiratory Infection (ED) Additional Instructions: take medications as prescribed. Take Tylenol or ibuprofen every 6-8 hours as needed for pain and fever. Continue to use inhalers as prescribed your primary care physician. Drink at least 64 oz of water a day. Place cool mist humidifier in bedroom where you sleep. Follow-up with your primary care physician if symptoms are not improving. Patient Language: Setswana Prescriptions: New benzonatate 200 mg capsule 200 mg PO TID PRN (Reason: cough) Qty: 20 0RF prednisone 20 mg tablet 40 mg PO DAILY 5 Days Qty: 10 0RF azithromycin 250 mg tablet See Rx Instructions .ROUTE .COMPLEX Qty: 6 0RF Rx Instructions: For 250 mg dose pack: take 500 mg today (day 1), then 250 mg for 4 days (days 2-5) No Action norethindrone (contraceptive) [Jencycla] 0.35 mg tablet albuterol sulfate 2.5 mg /3 mL (0.083 %) solution for nebulization 2.5 mg inhalation PRN PRN (Reason: Shortness Of Breath Or Wheezing) albuterol sulfate 90 mcg/actuation HFA aerosol inhaler 2 puff inhalation QID PRN (Reason: shortness of breath or wheezing) Qty: 6.7 0RF Breztri Aerosphere 160-9-4.8 mcg/actuation HFA aerosol inhaler 2 inh INHALATION DAILY PNV no.48-neum-[id number] acid 30-975 mg-mcg Tablet 1 tablet PO DAILY sertraline 100 mg Tablet 100 mg PO DAILY Airsupra 90-80 mcg/actuation Hfa Aerosol Inhaler INHALATION 4-6XD PRN (Reason: Wheezing) Follow-up/Referrals: Celso,Elieser [Other] Time of Disposition: 09:43
--- OUTSIDE RECORDS SUMMARY | 2024-10-20 13:42 | XMS_ITS | Encounter Summary ---
Author Organization [facility] Address [address] [place] [address]. [place] [address] [place] [address] Care Team Providers Care Investigator Utility Bill Complaints Name Role Phone Elieser Houston Primary Care Provider [phone] Encounter Details Date Type Department Care Team (Latest Contact Info) Description 12/19/2023 Travel Social History Tobacco Use Types Packs/Day Years Used Date Smoking Tobacco: Never Smokeless Tobacco: Never Alcohol Use Standard Drinks/Week Comments Not Currently 0 (1 standard drink = 0.6 oz pur e alcohol) PHQ-2 Answer Date Recorded Patient Health Questionnaire-2 Score 0 11/12/2023 Estimated Date of Delivery Comme nts Yes 04/10/2024 Sex and Gender Information Value Date Recorded Sex Assigned at Not on file Legal Sex Female 3:26 PM FLEXIBLE NANNY Gender Identity Not on file Sexual Orientation Not on file documented as of this encounter Plan of Treatment Upcoming Encounters Date Type Department Care Team (Late st Contact Info) Description 11/16/2024 10:20 AM FLEXIBLE NANNY Office Visit [facility] [address] [place] [address] Merlin Murrell DO [address] [place] [address] documented as of this encounter Visit Diagnoses Not on filedocumented in this encounter Care Teams Investigator Utility Bill Complaints Relationship Specialty Start [place] [address] [place] [address] PCP - General Physician Personnel Consultant Medical 11/05/23 documented as of this encounter
--- OUTSIDE RECORDS SUMMARY | 2024-10-20 13:42 | XMS_ITS | Encounter Summary ---
Author Organization [facility] Address [address] [place] [address]. [place] [address] [place] [address] Care Team Providers Care Manager Office Services Name Role Phone Elieser Houston Primary Care Provider Reason for Visit * Reason Comments Follow Up * Consultation (Routine) - Authorized Specialty Diagnoses / Procedures Referred By Contact Referred To Contact PULMONARY DISEASE / SLEEP & RESPIRATORY CARE Diagnoses Moderate persistent asthma without complication ([facility]/HCC) Procedures OFFICE/OUTPATIENT NEW LOW MDM 30-44 MINUTES OFFICE/OUTPT VISIT,NEW,LEVL IV OFFICE/OUTPT VISIT,NEW,LEVL V OFFICE/OUTPT VISIT,EST,LEVL III OFFICE/OUTPT VISIT,EST,LEVL IV OFFICE/OUTPT VISIT,EST,[place] [address] [place] [address] Phone: tel:[phone] fax:[phone] [facility] - [address], [address] [place] [address] Phone: tel: fax: Referral ID Status Reason Start Date Expiration Date Visits Requested Visits Authorized [id number] Authorized Specialty Services 11/12/2023 12/12/2024 99 99 Encounter Details Date Type Department Care Team (Late st Contact Info) Description 03/23/2024 9:30 AM CDT [facility] [address] [place] [address] Merlin Murrell DO [address] [facility] [place] [address] Follow Up Social History Tobacco Use Types Packs/Day Years [...] on file 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 Gender Identity Not on file Sexual Orientation Not on file documented as of this encounter Last Filed Vital Signs Vital Sign Reading Time Taken Comments Blood Pressure 159/94 03/23/2024 9:57 AM CDT Pulse 85 03/23/2024 9:40 AM CDT Temperature 36.9 ??C (98.4 ??F) 03/23/2024 9:40 AM CD T Respiratory Rate 16 03/23/2024 9:40 AM CDT Oxygen Saturation 96% 03/23/2024 9:40 AM CDT ra Inhaled Oxygen Concentration - - Weight 144.7 kg (319 lb) 03/23/2024 9:40 AM CDT Height 167.6 cm (5' 6 ) 03/23/2024 9:40 AM CDT Body Mass Index 51.49 03/23/2024 9:40 AM CDT documented in this encounter Patient Instructions * Patient Instructions* Merlin Murrell DO - 03/23/2024 9:30 AM CDT Images from the original note were not included. PATIENT INSTRUCTIONS Please review the following items that were discussed in your visit today: No testing for now. Continue using your breztri Start taking airsupra as reliever inhaler, 2 puff every 4 hours as needed, rinse and spit with tap water after each use. Return to clinic in 6-8 weeks, or sooner if your symptoms change or worsen. If you have any questions or concerns please send us a TogetheraT message for the most timely response. However, you can always call us at ([phone]) during office hours It was my pleasure to take care of you today, looking forward to seeing you at your next appointment. Please let us know how we are doing and leave a review for me on [employer] with the following QR code.You do not need an account and doesn't sign you up for anything. Usually can hover your smartphone camera over this QR code like you are taking a picture and just click on the link that forms under the QR code Alternatively you can use a QR scanner sharon through the [employer]). If you don't have a smart phone and want to leave a review for me you can always search Dr. Joe Murrell DO Google review to let us know how we are doing. Sincerely, Dr. Joe Murrell documented in this encounter Progress Notes * Merlin Murrell DO - 03/23/2024 9:30 AM CDT [facility] PUL[facility] NOTE History of Present Illness Georgina Murrell is a 29-year-old female who presented to our clinic for: Chief Complaint Patient presents with Follow Up OV 03/23/24: since last OV pt had illness in 01/2024, URI sx, was not getting better, increased ÁLVAREZ and wheezing, was given prednisone for 5 days, sx improved. Now back to baseline. No imaging due to . -- Apparently received requested records from [facility] 01/03/24 and were scanned in but I can't find them, will re-send this. -- waking up nightly with breathing issue. Having cough and wheezing throughout the day. Not havingsputum throughout the day. -- using in breztri 2 puffs bid, with spacer, using albuterol 3-4x per day and nebs. No fever/chills. -- due date for is April 10. Initial Pulmonary OV 12/19/23: The patient presents today to establish care for asthma. Patient notes she was dx at age 15 with this, had a + MCT test (test was very + symptomatically). Has been on xoliar, allergy shots, and several types of inhalers in the past. -- Patient used to see Dr. Moralez / [facility] in [place]. -- became in jul 2023, since then worsening asthma control, only asthma exacerbation in oct 2023, received 1 week po steroid burst. -- most recently pt started on breztri 2 puffs bid in 11/2023. Prior to this was on symbicort and well controlled on the 160mcg dose. -- Recently had covid 19 3 weeks ago, now recovered, thinks that her asthma control overall is improved since being on breztri 2 puffs bid. We discussed no nursing home safety data on several component -- notes that she is waking up 2-3x per week with coughing. -- notes that she is wheezing throughout the day on and off, cough is mild, no sputum throughout the rest of the day. -- having some post nasal gtt. -- had mold in her home / having it mitigated now, and removing carpet. ==> ruddy started 2 week ago. Think it is not making her sx bad presently. -- using albuterol 3x per day presently. -- GERD: on medication for this with pepcid, noted it is helping some. Other Relevant Hx: Fam hx: no lung disease. Tob: never smoker Exp: no TB exp, no asbestos. Pets: + lehman retriever / and pakistani clay. + allergy to cat dander. Occ: + RT, works at [employer] reviewed: None to review. Testing/Data reviewed: Labs: Echo: PFT: Sleep Data: Past Medical History: Diagnosis Date 2021 Asthma ([facility]/HCC) GERD (gastroesophageal reflux disease) History reviewed. No pertinent surgical history. Social History Tobacco Use Smoking status: Never Smokeless tobacco: Never Substance Use Topics Alcohol use: Not Currently Comment: Drug use: Never Family History Problem Relation Name Age of Onset Diabetes Father Dad Cancer Maternal Grandmother Alissa Cervical/stomach Cancer Maternal Grandfather Leigha Lung Cancer Kidney Disease Paternal Grandmother Geoffrey Current Outpatient Medications Medication Sig Dispense Refill albuterol (PROVENTIL) (2.5 MG/3ML) 0.083% nebulizer solution Take 3 mLs (2.5 mg total) by nebulization every 6 (six) hours as needed. albuterol sulfate HFA 108 (90 Base) MCG/ACT inhaler Inhale 2 puffs into the lungs every 6 (six) hours as needed. 18 g 2 BREZTRI AEROSPHERE 160-9-4.8 MCG/ACT Aerosol cetirizine (ZYRTEC) 10 MG tablet Take 1 tablet (10 mg total) by mouth daily. EPINEPHrine 0.3 MG/0.3ML injection Inject 0.3 mLs (0.3 mg total) into the muscle as needed. montelukast (SINGULAIR) 10 MG tablet Take 1 tablet (10 mg total) by mouth nightly at bedtime. sertraline (ZOLOFT) 50 MG tablet Take 2 tablets (100 mg total) by mouth daily. amoxicillin-clavulanate (AUGMENTIN) 875-125 MG tablet Take 1 tablet (875 mg total) by mouth 2 (two)times daily. (Patient not taking: Reported on 12/19/2023) predniSONE (DELTASONE) 20 MG tablet Take 0.5 tablets (10 mg total) by mouth daily. (Patient not taking: Reported on 12/19/2023) No current facility-administered medications for this visit. Review of patient's allergies indicates: Allergen Reactions Almonds Hives, Itching and Swelling Pecans Swelling Sulfa Antibiotics Unknown Black [place] Pollen Allergy Skin Test Swelling Pt had allergy testing with this showing up as an allergy Shellfish Allergy Unknown Pt had allergy testing with this showing as an allergy Immunization History Administered Date(s) Administered Dtap (Acel-Immune) 05/30/2000 Dtp (Generic) 1995 Dtp/Hib (Tetramune) 1995, 02/14/1996, 09/11/1996 Hepatitis B Pediatric 1995, 1995, 02/14/1996 Hib (Generic) 1995 Influenza 08/12/2009, 08/11/2013 Influenza Adult (Generic) 08/03/2015, 07/19/2019, 09/16/2023 CHERIE (ANSON & ANSON) COVID-19 AD26 VACCINE 0.5 ML IM SUSP 01/02/2021 MMR (MMRII) 09/11/1996, 05/30/2000 Pneumococcal (Pneumovax 23) 09/22/2013 Polio IPV (Ipol) 05/30/2000 Polio Opv (Generic) 1995, 1995, 02/14/1996 Tdap (Generic) 11/23/2022 Review of Systems Constitutional: Negative for malaise/fatigue and weight loss. HENT: Negative for congestion and sore throat. Respiratory: Positive for cough, shortness of breath and wheezing. Negative for hemoptysis and sputum production. Cardiovascular: Negative for chest pain, palpitations, orthopnea, leg swelling and PND. Gastrointestinal: Positive for heartburn. Endo/Heme/Allergies: Positive for environmental allergies. Psychiatric/Behavioral: The patient does not have insomnia. Physical Exam Filed Vitals: 03/23/24 0940 BP: (!) 152/95 Pulse: 85 Resp: 16 Temp: 98.4 ??F (36.9 ??C) TempSrc: Temporal SpO2: 96% Weight: (!) 144.7 kg (319 lb) Height: 1.676 m (5' 6 ) GEN: Pleasant, in NAD NEURO: Alert, oriented x3, no focal neurologic deficits noted PSYCH: Affect is normal HEAD: NC, AT EENT: mallampati 2 NECK: Supple, trachea midline LN: No appreciable cervical lymphadenopathy PULM: non-labored, CTAB, no wheezes/crackles HEART: normal s1,s2, rrr, no audible murmur GI: non-distended MSK: Normal range of motion of b/l hand/wrist joints without effusion or joint tenderness EXTR: No clubbing, no edema Skin: No visible rashes, no visible tattoos Assessment #. Asthma, moderate persistent. Symptoms not under great control presently. # currently #. Morbid obesity Body mass index is 51.49 kg/m??. #. Allergic rhinitis Plan -- start airsupra 2 puffs every 4 hours as needed. Stop albuterol. -- request pft and cxr records from Dr. Moralez. In [facility]. ===> requested records again. -- continue brezdtri. -- continue albuterol prn. -- we previously discussed no longer term safety data for lama / laba medications with / we discussed that she is due in March 2024. Most important factor is to keep your asthma under fair control and prevent astrhma exacerbations -- discussed xolair pt wishes to hold off for now. -- we discussed to avoid known allergens/triggers, she is making steps to remove mold and carpet from her home which may be playing some control in worsening sx recently. -- we discussed injectable medications for asthma and possible need for them in the future. RTC 6-8 weeks. I personally spent a total of >40 minutes on the day of the encounter. This includes bmeo-sp-ifqk and fej-ddhe-qx-face time I provided on the day of the encounter & excludes time spent performing separately reportable services. Addendum 04/19/24: records review Pft 05/2021: ratio 74, fev1 3.1L, 93%. FVC 4.17L 107%, FVL wnl. Dr. Joe Murrell [facility] Pulmonary Medicine documented in this encounter Plan of Treatment Upcoming Encounters Date Type Department Care Team (Late st Contact Info) Description 11/16/2024 10:20 AM BIOMASS POWER PLANT MANAGER Office Visit [facility] Multispecialty Care - [facility] [address] [place] [address] Merlin Murrell DO 3 [facility] [address] [place] [address] documented as of this encounter Visit Diagnoses Diagnosis Moderate persistent asthma without complication (HHS/HCC)- Primary Unspecified asthma Morbid (severe) obesity due to excess calories ([facility]/HCC HHS/HCC) Allergic rhinitis due to pollen, unspecified seasonality , unspecified gestational age ([facility]) documented in this encounter Care Teams Manager Office Services Relationship Specialty [place] [address] [place] [address] PCP - General Physician Supervisor [employer] 11/05/23 documented as of this encounter
--- OUTSIDE RECORDS SUMMARY | 2024-10-20 13:42 | XMS_ITS | Encounter Summary ---
Author Organization [facility] Address [address] [place] [address]. [place] [address] [place] [address] Care Team Providers Care Msw Name Role Phone Elieser [place] Primary Care Provider [phone] Reason for Visit * Reason Onset Date Comments Record Request 01/03/2024 Encounter Details Date Type Department Care Team (Late st Contact Info) Description 01/03/[address] 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 Multispecialty Care - [facility] [address] [place] [address] Merlin Murrell DO [address] [facility] [address] [place] [address] documented as of this encounter Visit Diagnoses Not on filedocumented in this encounter Care Teams Msw Relationship Specialty [place] [address] [place] [address] PCP - General Physician Surgery Aid Medical 11/05/23 documented as of this encounter
--- OUTSIDE RECORDS SUMMARY | 2024-10-20 13:42 | XMS_ITS | Encounter Summary ---
Author Organization [facility] Address [address] [place] [address]. 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 Would monitor symptoms for now and use albuterol more often, up to every 4 hours as needed. If sx worsen please let me know or seek care at urgent care etc, may need to use short course of steroids if sx do not improve. Thanks Dr. Joe Murrell [facility] Pulmonary Medicine * Merlin Murrell DO - 01/23/2024 2:14 PM CDTFrom: Georgina Murrell To: Dr. Merlin Murrell Sent: 01/23/2024 12:58 PM CDT Subject: Shortness of breath/wheezing Good afternoon. I have been experiencing increasing shortness of breath just walking and increased wheezing. I have been taking my inhalers and allergy medicine. I noticed the wheezing yesterday and today at work it???s making it hard to do anything without being sob or wheezing. I don???t know if it???s just allergies or if I have a little respiratory virus. Is there anything else I can take to relieve these symptoms? Thank you, Georgina Murrell documented in this encounter Plan of Treatment Upcoming Encounters Date Type Department Care Team (Late st Contact Info) Description 11/16/2024 10:20 AM SHEEPSKIN PICKLER Office Visit [facility] Multispecialty Care - [facility] [address] [place] [address] Merlin Murrell DO [address] [facility] [address] [place] [address] documented as of this encounter Visit Diagnoses Not on filedocumented in this encounter Care Teams Keyliner Relationship Specialty [place] [address] [place] [address] PCP - General Physician Office Machines Sales Representative Medical 11/05/23 documented as of this encounter
--- OUTSIDE RECORDS SUMMARY | 2024-10-20 13:42 | XMS_ITS | Encounter Summary ---
Author Organization [facility] Address [address] [place] [address]. 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 Gender Identity Not on file Sexual Orientation Not on file documented as of this encounter Plan of Treatment Upcoming Encounters Date Type Department Care Team (Late st Contact Info) Description 11/16/2024 10:20 AM MINISTER ASSISTANT Office Visit [facility] Multispecialty Care - [facility] [address] [place] [address] Merlin Murrell DO [address] [place] [address] documented as of this encounter Visit Diagnoses Not on filedocumented in this encounter Care Teams Table Hand Relationship Specialty [place] [address] [place] [address] PCP - General Physician [employer] [facility] 11/05/23 documented as of this encounter
--- OUTSIDE RECORDS SUMMARY | 2024-10-20 13:42 | XMS_ITS | Encounter Summary ---
Author Organization [facility] Address [address] [place] [address]. 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 I tried calling the [facility] but says office is closed. I guess I will need to reschedule unless you have anything open this morning thank you documented in this encounter Plan of Treatment Upcoming Encounters Date Type Department Care Team (Late st Contact Info) Description 11/16/2024 10:20 AM CHILDREN'S MINISTER Office Visit [facility] Multispecialty Care - [facility] [address] [place] [address] Merlin Murrell DO [address] [facility] [address] [place] [address] documented as of this encounter Visit Diagnoses Not on filedocumented in this encounter Care Teams Entertainment Musician Relationship Specialty [place] [address] [place] [address] PCP - General Physician Sulfuric Acid Plant Operator Medical 11/05/23 documented as of this encounter
--- OUTSIDE RECORDS SUMMARY | 2024-10-20 13:42 | XMS_ITS | Encounter Summary ---
Author Organization [facility] Address [address] [place] [address]. 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 Gender Identity Not on file Sexual Orientation Not on file documented as of this encounter Plan of Treatment Upcoming Encounters Date Type Department Care Team (Late st Contact Info) Description 11/16/2024 10:20 AM JOCKEY ROOM CUSTODIAN [facility] [address] [place] [address] Merlin Murrell, DO [address] [place] [address] documented as of this encounter Visit Diagnoses Not on filedocumented in this encounter Care Teams Sand Slinger Relationship Specialty [place] [address] [place] [address] PCP - General Physician Job Trainer Medical 11/05/23 documented as of this encounter
--- OUTSIDE RECORDS SUMMARY | 2024-10-20 13:42 | XMS_ITS | Clinical Summary ---
Author Organization [facility] Address [address] [place] [address] Care Team Providers Care Decker Operator Name Role Phone Unavailable Primary Care Provider Unavailabl e Source Comments [facility],non-owned Affiliates and Associated Physician Practices is amultiple site organization consisting of ambulatory clinics and hospital sitesin [place], [place], [place] and [place]. This disclosure is being madepursuant to the Care Everywhere program and may not contain all information available regarding this patient. Last updated 18.[facility] Social History Tobacco Use Types Packs/Day Years Used Date Smoking Tobacco: Never Assessed Sex and Gender Information Value Date Recorded Sex Assigned at Not on file Gender Identity Not on file Sexual Orientation Not on file Plan of Treatment Health Maintenance Due Date Last Done Comments PAP SMEAR 1995 HIV SCREENING 2010 HEPATITIS C SCREENING 03/11/2013 DTAP/TDAP/TD VACCINES (1 - Tdap) 2014 HEPATITIS B VACCINE (1 of 3 - 19+ 3-dose series) 2014 DEPRESSION SCREENING 10/21/2023 COVID-19 VACCINE (1 - 2023-2 5 season) 2024 INFLUENZA VACCINE (#1) 2024 ZOSTER VACCINE (1 of 2) 2045 HIB VACCINE Aged Out No longer eligi ble based on patient's age to complete this topic HPV VACCINE Aged Out No longer eligi ble based on patient's age to complete this topic MENINGOCOCCAL VACCINE Aged Out No nhi addy eligible based on patient's age to complete this topic PNEUMOCOCCAL VACCINE Aged Out No long er eligible based on patient's age to complete this topic Georgina Murrell Personal/Family Self 1995 [facility] [address] [place] [address]
--- OUTSIDE RECORDS SUMMARY | 2024-10-20 13:42 | XMS_ITS | Patient Health Summary ---
Author Organization [facility] Address [address] [place] [address] Care Team Providers Care Filling Carrier Name Role Phone Unavailable Primary Care Provider Unavailabl e Note from [facility],non-owned Affiliates and Associated Physician Practices is amultiple site organization consisting of ambulatory clinics and hospital sitesin [place], [place]. This disclosure is being madepursuant to the Care Everywhere program and may not contain all information available regarding this patient. Last updated 18.[facility] Glassful Social History Tobacco Use Types Packs/Day Years Used Date Smoking Tobacco: Never Assessed Sex and Gender Information Value Date Recorded Sex Assigned at Not on file Gender Identity Not on file Sexual Orientation Not on file
--- OUTSIDE RECORDS SUMMARY | 2024-10-20 13:42 | XMS_ITS | Encounter Summary ---
Author Organization [facility] Address [address] [place] [address]. [place] [address] [place] [address] Care Team Providers Care Microarray Specialist Name Role Phone Elieser Houston Primary Care Provider [phone] Reason for Visit * Reason Comments Asthma * Consultation (Routine) - Authorized Specialty Diagnoses / Procedures Referred By Contact Referred To Contact PULMONARY DISEASE / SLEEP & RESPIRATORY CARE Diagnoses Moderate persistent asthma without complication ([facility]) Procedures OFFICE/OUTPATIENT NEW LOW MDM 30-44 MINUTES OFFICE/OUTPT VISIT,NEW,LEVL IV OFFICE/OUTPT VISIT,NEW,LEVL V OFFICE/OUTPT VISIT,EST,LEVL III OFFICE/OUTPT VISIT,EST,LEVL IV OFFICE/OUTPT VISIT,EST,[place] [address] [place] [address] Phone: tel:[phone] fax:[phone] [facility] - [address], [address] [place] [address] Phone: tel: fax: Referral ID Status Reason Start Date Expiration Date Visits Requested Visits Authorized [id number] Authorized Specialty Services 11/12/2023 12/12/2024 99 99 Encounter Details Date Type Department Care Team (Late st Contact Info) Description 12/19/2023 8:00 AM MANAGER TRANSFER Office [facility] [address] [place] [address] Merlin Murrell DO [address] [facility] [address] [place] [address] Asthma Social History Tobacco Use Types Packs/Day Years Used Date Smoking Tobacco: Never Smokeless Tobacco: Never Tobacco Cessation:Counseling Given: Yes Alcohol Use Standard Drinks/Week Comments Not Currently 0 (1 standard drink = 0.6 oz pur e alcohol) PHQ-2 Answer Date Recorded Patient Health Questionnaire-2 Score 0 11/12/2023 Estimated Date of Delivery Comme nts Yes 04/10/2024 Sex and Gender Information Value Date Recorded Sex Assigned at Not on file Legal Sex Female 3:26 PM MANAGER TRANSFER Gender Identity Not on file Sexual Orientation Not on file documented as of this encounter Last Filed Vital Signs Vital Sign Reading Time Taken Comments Blood Pressure 118/68 12/19/2023 7:53 AM MANAGER TRANSFER Pulse 92 12/19/2023 7:53 AM MANAGER TRANSFER Temperature 36.3 ??C (97.4 ??F) 12/19/2023 7:53 AM CS T Respiratory Rate 18 12/19/2023 7:53 AM MANAGER TRANSFER Oxygen Saturation 97% 12/19/2023 7:53 AM MANAGER TRANSFER RA Inhaled Oxygen Concentration - - Weight 131.1 kg (289 lb) 12/19/2023 7:53 AM MANAGER TRANSFER Height 167.6 cm (5' 6 ) 12/19/2023 7:53 AM MANAGER TRANSFER Body Mass Index 46.65 12/19/2023 7:53 AM MANAGER TRANSFER documented in this encounter Patient Instructions * Patient Instructions* Merlin Murrell DO - 12/19/2023 8:00 AM MANAGER TRANSFER Images from the original note were not included. PATIENT INSTRUCTIONS Please review the following items that were discussed in your visit today: Keep taking your inhalers without change. Let me know if your breathing worsens. Try to avoid allergens as able, try to get a CORDELL 13 or higher air filter for your home AC/heating system. We will request records from your pulmonary doctor. Return to clinic in 3 months, or sooner if your symptoms change or worsen. If you have any questions or concerns please send us a [employer] message for the most timely response. However, you can always call us at ([phone]) during office hours It was my pleasure [...] use a QR scanner sharon through the [employer]). If you don't have a smart phone and want to leave a review for me you can always search Dr. Joe Murrell DO Google review to let us know how we are doing. Sincerely, Dr. Joe Murrell GER TRANSFER documented in this encounter Progress Notes * Merlin Murrell DO - 12/19/2023 8:00 AM CST [facility] PUL[facility]IC[facility] CLINIC NOTE History of Present Illness Georgina Murrell is a 28-year-old female who presented to our clinic for: Chief Complaint Patient presents with Asthma Initial Pulmonary OV 12/19/23: The patient presents today to establish care for asthma. Patient notes she was dx at age 15 with this, had a + MCT test (test was very + symptomatically). Has been on xoliar, allergy shots, and several types of inhalers in the past. -- Patient used to see Dr. Moralez / w[place] in [place], [place]. -- became in jul 2023, since [...] breztri 2 puffs bid. We discussed no assisted safety data on several component -- notes [...] asbestos. Pets: + lehman retriever / and swedish clay. + allergy to cat dander. Occ: + RT, works at [employer] reviewed: None to review. Testing/Data reviewed: Labs: Echo: PFT: Sleep Data: Past Medical History: Diagnosis Date Anxiety 2021 Asthma GERD (gastroesophageal reflux disease) History reviewed. No [...] lungs every 6 (six) hours as needed. BREZTRI AEROSPHERE 160-9-4.8 MCG/ACT Aerosol cetirizine (ZYRTEC) [...] Swelling Pecans Swelling Sulfa Antibiotics Unknown Black Echo Pollen Allergy Skin Test Swelling Pt had allergy testing with this showing up as an allergy Shellfish Allergy Unknown Pt had allergy testing with this showing as an allergy Immunization History Administered Date(s) Administered Dtap (Acel-Immune) 05/30/2000 Dtp (Generic) 1995 Dtp/Hib (Tetramune) 1995, 02/14/1996, 09/11/1996 Hepatitis B Pediatric 1995, 1995, 02/14/1996 Hib (Generic) 1995 Influenza 08/12/2009, 08/11/2013 Influenza Adult (Generic) 08/03/2015, 07/19/2019, 09/16/2023 Omnireliant ([employer]) COVID-19 AD26 VACCINE 0.5 [...] not have insomnia. Physical Exam Filed Vitals: 12/19/23 0753 BP: 118/68 Pulse: 92 Resp: 18 Temp: 97.4 ??F (36.3 ??C) TempSrc: Temporal SpO2: 97% Weight: 131.1 kg (289 lb) Height: 1.676 m (5' 6 ) [...] #. Morbid obesity Body mass index is 46.65 kg/m??. #. Allergic rhinitis Plan -- request pft and cxr records from Dr. Moralez. In [facility]. -- to trelegy 200mcg dose, 1 puff daily. -- continue albuterol prn. -- we discussed no longer term safety data for lama / laba medications with / we discussed that she is due in March 2024. Most important factor is to keep your asthma under fair control and prevent astrhma exacerbations -- we discussed to avoid known allergens/triggers, she is making steps to remove mold and carpet from her home which may be playing some control in worsening sx recently. -- we discussed injectable medications for asthma and possible need for them in the future. RTC 3m Dr. Joe Murrell [facility] Pulmonary Medicine GER TRANSFER documented in this encounter Plan of Treatment Upcoming Encounters Date Type Department Care Team (Late st Contact Info) Description 11/16/2024 10:20 AM MANAGER TRANSFER Office Visit [facility] - [facility] [address] [place] [address] Merlin Murrell DO [address] [facility] [address] [place] [address] documented as of this encounter Visit Diagnoses Diagnosis Moderate persistent asthma without complication ([facility])- Primary Unspecified asthma Morbid (severe) obesity due to excess calories ([facility] HHS/HCC) Allergic rhinitis due to pollen, unspecified seasonality , unspecified gestational age ([facility]) documented in this encounter Care Teams Microarray Specialist Relationship Specialty Start [place] [address] [place] [address] PCP - General Physician [facility] [facility] 11/05/23 documented as of this encounter
--- OUTSIDE RECORDS SUMMARY | 2024-10-20 13:42 | XMS_ITS | Encounter Summary ---
Author Organization [facility] Address [address] [place] [address]. [place] [address] [place] [address] Care Team Providers Care Light Air Defense Artillery Crewmember Name Role Phone Elieser Houston Primary Care Provider [phone] Encounter Details Date Type Department Care Team (Latest Contact Info) Description 02/17/2024 Scan HEALTH INFO SRVCS Scanned, Doc Med Group Social History Tobacco Use Types Packs/Day Years [...] on file Legal Sex Female 3:26 PM VARSITY BASEBALL COACH Gender Identity Not on file Sexual Orientation Not on file documented as of this encounter Plan of Treatment Upcoming Encounters Date Type Department Care Team (Late st Contact Info) Description 11/16/2024 10:20 AM VARSITY BASEBALL COACH Office Visit [facility] Medical Group Multispecialty Care - [facility] [address] [place] [address] Merlin Murrell DO [address] [place] [address] documented as of this encounter Visit Diagnoses Not on filedocumented in this encounter Care Teams Light Air Defense Artillery Crewmember Relationship Specialty Start [place] [address] [place] [address] PCP - General Physician Manager [employer] 11/05/23 documented as of this encounter
--- OUTSIDE RECORDS SUMMARY | 2024-10-20 13:42 | XMS_ITS | Clinical Summary ---
Author Organization [facility] Address [address] [place] [address]. [place] [address] [place] [address] Care Team Providers Care Construction Site Manager Name Role Phone Elieser Houston Primary Care Provider [phone] Allergies Active Allergy Reactions Criticality Noted Date Comments Almonds Hives,Itching,Swelli ng Medium 11/12/2023 Black [place] Pollen Allergy Skin Test Swelling Low 11/12/2023 Pt had allergy testing with this showing up as an allergy Pecans Swelling 11/12/2023 Shellfish Allergy Unknown Low 11/12/2023 Pt had allergy testing with this showing as an allergy Sulfa Antibiotics Unknown 11/12/2023 Medications albuterol (PROVENTIL) (2.5 MG/3ML) 0.083% nebulizer solution Take 3 mLs (2.5 mg total) by nebulization every 6 (six) hours as needed. 3 Active amoxicillin-clav ulanate (AUGMENTIN) 875-125 MG tablet Take 1 tablet (875 mg total) by mouth 2 (two) times daily. 4 Active EPINEPHrine 0.3 MG/0.3ML injection Inject 0.3 mLs (0.3 mg total) into the muscle as needed. 3 Active predniSONE (DELTASONE) 20 MG tablet Take 0.5 tablets (10 mg total) by mouth daily. 4 Active montelukast (SINGULAIR) 10 MG tablet Take 1 tablet (10 mg total) by mouth nightly at bedtime. 9 Active sertraline (ZOLOFT) 50 MG tablet Take 2 tablets (100 mg total) by mouth daily. 3 Active cetirizine (ZYRTEC) 10 MG tablet Take 1 tablet (10 mg total) by mouth daily. Active BREZTRI AEROSPHERE 160-9-4.8 MCG/ACT Aerosol 4 Active albuterol sulfate HFA 108 (90 Base) MCG/ACT inhalerIndicatio ns:Moderate persistent asthma without complication (HHS/HCC) Inhale 2 puffs into the lungs every 6 (six) hours as needed. 18 g 6 4 Active Immunizations Name Administration Dates Next Due Dtap (Acel-Immune) 05/30/2000 Dtp (Generic) 1995 Dtp/Hib (Tetramune) 09/11/1996,02/14/1996,1994 Hepatitis B Pediatric 02/14/1996,1995,02/19 Hib (Generic) 1995 Influenza (Generic) 08/11/2013,08/12/2009 Influenza Adult (Generic) 09/16/2023,07/19/2019, 08/03/2015 ZUCHEM ([employer]) COVID-19 AD26 VACCINE 0.5 ML IM SUSP 01/02/2021 MMR (MMRII) 05/30/2000,09/11/1996 Pneumococcal (Pneumovax 23) 09/22/2013 Polio IPV (Ipol) 05/30/2000 Polio Opv (Generic) 02/14/1996,1995,1994 Tdap (Generic) 11/23/2022 Family History Medical History Relation Comments Diabetes Father Cancer Maternal Grandfather Lung Cancer Cancer Maternal Grandmother Cervical/st omach Kidney Disease Paternal Grandmother Relation Status Comments Father Alive Maternal Grandfather Maternal Grandmother Mother Alive Paternal Grandmother Social History Tobacco Use Types Packs/Day Years Used Date Smoking Tobacco: Never Smokeless Tobacco: Never Tobacco Cessation:Counseling Given: Yes Alcohol Use Standard Drinks/Week Comments Not Currently 0 (1 standard drink = 0.6 oz pur e alcohol) PHQ-2 Answer Date Recorded Patient Health Questionnaire-2 Score 0 05/14/2024 Estimated Date of Delivery Comme nts Yes 04/10/2024 Sex and Gender Information Value Date Recorded Sex Assigned at Not on file Legal Sex Female 3:26 PM BINDERY MACHINE SETTER Gender Identity Not on file Sexual Orientation Not on file Last Filed Vital Signs Vital Sign Reading Time Taken Comments Blood Pressure 114/74 05/14/2024 10:34 AM CDT Pulse 68 05/14/2024 10:34 AM CDT Temperature 36.7 ??C (98.1 ??F) 05/14/2024 10:34 AM C DT Respiratory Rate 16 03/23/2024 9:40 AM CDT Oxygen Saturation 95% 05/14/2024 10:34 AM CDT RA Inhaled Oxygen Concentration - - Weight 117.9 kg (260 lb) 05/14/2024 10:34 AM CDT Height 167.6 cm (5' 6 ) 05/14/2024 10:34 AM CDT Body Mass Index 41.97 05/14/2024 10:34 AM CDT Plan of Treatment Upcoming Encounters Date Type Department Care Team (Late st Contact Info) Description 11/16/2024 10:20 AM BINDERY MACHINE SETTER Office Visit [facility] Medical Group Multispecialty Care - [facility] [address] [place] [address] Merlin Murrell DO [address] [place] [address] Health Maintenance Due Date Last Done Comments Annual Physical 1998 Hepatitis C 2013 Pneumococcal Vaccine: Pediatrics (0 to 5 Years) and At-Risk Patients (6 to 64 Years) (2 of 2 - PCV) 09/22/2014 09/22/2013 COVID-19 Vaccine (2 - season) 2024 01/02/2021 Influenza Adult (#1) 2024 09/16/2023, 07/19/2019, 08/03/2015, Additional history exists Cervical Cancer Screening Pap Smear (Age 21 to 29) Every 3 Years 2026 Cervical Cancer Screening 2026 DTaP, Tdap and Td Vaccines (4 - Td or Tdap) 11/23/2032 11/23/2022, 05/30/2000, 09/11/1996, Additional history exists RSV Immunization or 60+ Years (1 - 1-dose 75+ series) 2070 Hepatitis B Vaccines Completed 02/14/1996, 1995, 1995 HPV Vaccines Aged Out No longer eligi ble based on patient's age to complete this topic Meningococcal Vaccine Aged Out No nhi addy eligible based on patient's age to complete this topic RSV Immunizations Under 20 Months Aged Out No longer eligible based on patient's age to complete this topic Insurance [facility] Care Teams Construction Site Manager Relationship Specialty [place] [address] [place] [address] PCP - General Physician [facility] 11/05/23
--- OUTSIDE RECORDS SUMMARY | 2024-10-20 13:42 | XMS_ITS | Encounter Summary ---
Author Organization [facility] Address [address] [place] [address]. 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 [employer] Gender Identity Not on file Sexual Orientation Not on file documented as of this encounter Plan of Treatment Upcoming Encounters Date Type Department Care Team (Late st Contact Info) Description 11/16/2024 10:20 AM FARMWORKER [employer]URKEY FARM Office Visit [facility] Multispecialty Care - [facility] [address] [place] [address] Merlin Murrell DO [address] [place] [address] documented as of this encounter Visit Diagnoses Not on filedocumented in this encounter Care Teams Surveying Or Spatial Science Technician Relationship Specialty [place] [address] [place] [address] PCP - General Physician Crewman Armoured Personnel Carrier [employer] [facility] 11/05/23 documented as of this encounter
--- OUTSIDE RECORDS SUMMARY | 2024-10-20 13:42 | XMS_ITS | Encounter Summary ---
Author Organization [facility] Address [address] [place] [address]. [place] [address] [place] [address] Care Team Providers Care Claim Clerk Name Role Phone Elieser Houston Primary Care Provider Encounter Details Date Type Department Care Team (Latest Contact Info) Description 03/23/2024 Travel Social History Tobacco Use Types Packs/Day [...] on file Legal Sex Female 3:26 PM QA AUTOMATION DEVELOPER Gender Identity Not on file Sexual Orientation Not on file documented as of this encounter Plan of Treatment Upcoming Encounters Date Type Department Care Team (Late st Contact Info) Description 11/16/2024 10:20 AM QA AUTOMATION DEVELOPER Office Visit [facility] Medical Group Multispecialty Care - [facility] [address] [place] [address] Merlin Murrell DO [address] [place] [address] documented as of this encounter Visit Diagnoses Not on filedocumented in this encounter Care Teams Claim Clerk Relationship Specialty Start [place] [address] [place] [address] PCP - General Physician [facility]ist Medical 11/05/23 documented as of this encounter
--- OUTSIDE RECORDS SUMMARY | 2024-10-20 13:42 | XMS_ITS | Encounter Summary ---
Author Organization [facility] Address [address] [place] [address]. [place] [address] [place] [address] Care Team Providers Care Hat Brim Curler Name Role Phone Elieser Houston Primary Care Provider [phone] Reason for Visit * Reason Comments Follow Up asthma * Consultation (Routine) - Authorized Specialty Diagnoses / Procedures Referred By Contact Referred To Contact PULMONARY DISEASE / SLEEP & RESPIRATORY CARE Diagnoses Moderate persistent asthma without complication ([facility]) Procedures OFFICE/OUTPATIENT NEW LOW MDM 30-44 MINUTES OFFICE/OUTPT VISIT,NEW,LEVL IV OFFICE/OUTPT VISIT,NEW,LEVL V OFFICE/OUTPT VISIT,EST,LEVL III OFFICE/OUTPT VISIT,EST,LEVL IV OFFICE/OUTPT VISIT,EST,[place] [address] [place] [address] Phone: tel:[phone] fax:[phone] [facility] - [address], [address] [place] [address] Phone: tel: fax: Referral ID Status Reason Start Date Expiration Date Visits Requested Visits Authorized [id number] Authorized Specialty Services 11/12/2023 12/12/2024 99 [phone] Encounter Details Date Type Department Care Team (Latest Contact Info) Description 05/14/2024 10:30 AM CDT [facility] [address] [place] [address] Merlin Murrell DO [address] 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 ATTENDANT Gender Identity Not on file Sexual Orientation Not on file documented as of this encounter Last Filed Vital Signs Vital Sign Reading Time Taken Comments Blood Pressure 114/74 05/14/2024 10:34 AM CDT Pulse 68 05/14/2024 10:34 AM CDT Temperature 36.7 ??C (98.1 ??F) 05/14/2024 10:34 AM C DT Respiratory Rate - - Oxygen Saturation 95% 05/14/2024 10:34 AM CDT RA Inhaled Oxygen Concentration - - Weight 117.9 kg (260 lb) 05/14/2024 10:34 AM CDT Height 167.6 cm (5' 6 ) 05/14/2024 10:34 AM CDT Body Mass Index 41.97 05/14/2024 10:34 AM CDT documented in this encounter Patient Instructions * Patient Instructions* Merlin Murrell DO - 05/14/2024 10:30 AM CDT Images from the original note were not included. PATIENT INSTRUCTIONS Please review the following items that were discussed in your visit today: No testing for now. Continue using your breztri 2 puffs bid. Stop taking airsupra. For now. Let me know if breathing worsens however. Resume albuterol 2 puffs every 4 hours as needed. Return to clinic in 6 months, or sooner if your symptoms change or worsen. If you have any questions or concerns please send us a SpavistaT message for the most timely response. However, you can always call us at ([phone]) during office hours It was my pleasure [...] use a QR scanner sharon through the [employer] If you don't have a smart phone and want to leave a review for me you can always search Dr. Joe Murrell DO Google review to let us know how we are doing. Sincerely, Dr. Joe Murrell documented in this encounter Progress Notes * Merlin Murrell DO - 05/14/2024 10:30 AM CDT [facility] NOTE History of Present Illness Georgina Murrell is a 29-year-old female who presented to our clinic for: Chief Complaint Patient presents with Follow Up asthma OV 05/14/24: since last OV pt notes that she has not had any exacerbations of her breathing needing atb or steroids, notes compliance with inhalers. Since c- section 6 weeks ago no longer with daily sxof asthma such as cough, wheezing, mcclure and night-time awakenings are gone. - reviewed outside pft records, Pft 05/2021: ratio 74, fev1 3.1L, 93%. FVC 4.17L 107%, FVL wnl. OV 03/23/24: since last OV pt had illness in 01/2024, URI sx, was not getting better, increased MCCLURE and wheezing, was given prednisone for 5 days, sx improved. Now back to baseline. No imaging due to . -- Apparently received requested records [facility] 01/03/24 and were scanned in but [...] to see Dr. Moralez / [facility] [place]. -- became in jul 2023, since [...] breztri 2 puffs bid. We discussed no jail safety data on several component -- notes [...] asbestos. Pets: + lehman retriever / and [place] clay. + allergy to cat dander. Occ: + RT, works at [employer] reviewed: None to review. Testing/Data reviewed: Labs: Echo: Pft 05/2021: ratio 74, fev1 3.1L, 93%. FVC 4.17L 107%, FVL wnl. Sleep Data: Past Medical History: Diagnosis Date 2021 Asthma (HHS/HCC) GERD (gastroesophageal reflux disease) History reviewed. No [...] (six) hours as needed. 18 g 6 amoxicillin-clavulanate (AUGMENTIN) 875-125 MG tablet Take 1 tablet (875 mg total) by mouth 2 (two)times daily. BREZTRI AEROSPHERE 160-9-4.8 MCG/ACT Aerosol cetirizine (ZYRTEC) 10 MG tablet Take 1 tablet (10 mg total) by mouth daily. EPINEPHrine 0.3 MG/0.3ML injection Inject 0.3 mLs (0.3 mg total) into the muscle as needed. montelukast (SINGULAIR) 10 MG tablet Take 1 tablet (10 mg total) by mouth nightly at bedtime. predniSONE (DELTASONE) 20 MG tablet Take 0.5 tablets (10 mg total) by mouth daily. sertraline (ZOLOFT) 50 MG tablet Take 2 tablets (100 mg total) by mouth daily. No current facility-administered medications for this visit. Review of patient's allergies indicates: Allergen Reactions Almonds Hives, Itching and Swelling Pecans Swelling Sulfa Antibiotics Unknown Black Yale Pollen Allergy Skin Test Swelling Pt had allergy testing with this showing up as an allergy Shellfish Allergy Unknown Pt had allergy testing with this showing as an allergy Immunization History Administered Date(s) Administered Dtap (Acel-Immune) 05/30/2000 Dtp (Generic) 1995 Dtp/Hib (Tetramune) 1995, 02/14/1996, 09/11/1996 Hepatitis B Pediatric 1995, 1995, 02/14/1996 Hib (Generic) 1995 Influenza 08/12/2009, 08/11/2013 Influenza Adult (Generic) 08/03/2015, 07/19/2019, 09/16/2023 [employer] (Marco Vasco) COVID-19 AD26 VACCINE 0.5 ML IM SUSP 01/02/2021 MMR (MMRII) 09/11/1996, 05/30/2000 Pneumococcal (Pneumovax 23) 09/22/2013 Polio IPV (Ipol) 05/30/2000 Polio Opv (Generic) 1995, 1995, 02/14/1996 Tdap (Generic) 11/23/2022 Review of Systems Constitutional: Negative for malaise/fatigue and weight loss. HENT: Negative for congestion and sore throat. Respiratory: Positive for wheezing. Negative for cough, hemoptysis, sputum production and shortnessof breath. Cardiovascular: Negative for chest pain, palpitations, orthopnea, leg swelling and PND. Gastrointestinal: Negative for heartburn. Endo/Heme/Allergies: Negative for environmental allergies. Psychiatric/Behavioral: The patient does not have insomnia. Physical Exam Filed Vitals: 05/14/24 1034 BP: 114/74 Pulse: 68 Temp: 98.1 ??F (36.7 ??C) TempSrc: Temporal SpO2: 95% Weight: 117.9 kg (260 lb) Height: 1.676 m (5' 6 ) [...] no visible tattoos Assessment #. Asthma, moderate persistent, well controlled now -- hx of worsening control during recent . #. Morbid obesity Body mass index is 41.97 kg/m??. #. Allergic rhinitis Plan -- stop airsupra (step down given much better control) -- continue breztri. 2 puffs bid. -- resume albuterol prn. RTC [address] Joe Murrell [facility] Pulmonary Medicine documented in this encounter Plan of Treatment Upcoming Encounters Date Type Department Care Team (Late st Contact Info) Description 11/16/2024 10:20 AM SHOWER ATTENDANT Office Visit [facility] [address] [place] [address] Merlin Murrell DO [address] [facility] [address] [place] [address] documented as of this encounter Visit Diagnoses Diagnosis Moderate persistent asthma without complication ([facility] Primary Unspecified asthma Morbid (severe) obesity due to excess calories ([facility]) Allergic rhinitis due to pollen, unspecified seasonality documented in this encounter Care Teams Hat Brim Curler Relationship Specialty Start [place] [address] [place] [address] PCP - General Physician [employer] Medical 11/05/23 documented as of this encounter
--- OUTSIDE RECORDS SUMMARY | 2024-10-20 13:42 | XMS_ITS | Referral Summary ---
Author Organization [facility] Address [address] [place] [address] Care Team Providers Care Health Insurance Agent Name Role Phone Unavailable Primary Care Provider Unavailabl e Source Comments [facility],non-owned Affiliates and Associated Physician Practices is amultiple site organization consisting of ambulatory clinics and hospital sitesin [place], [place], [place] and [place]. This disclosure is being madepursuant to the Care Everywhere program and may not contain all information available regarding this patient. Last updated 18.[facility] [address] [employer] Social History Tobacco Use Types Packs/Day Years Used Date Smoking Tobacco: Never Assessed Sex and Gender Information Value Date Recorded Sex Assigned at Not on file Gender Identity Not on file Sexual Orientation Not on file Plan of Treatment Not on file Georgina Murrell Personal/Family Self 1995 ([place]) [facility] [address] [place] [address]
--- OUTSIDE RECORDS SUMMARY | 2024-10-20 13:42 | XMS_ITS | Data Portability ---
Author Organization [place] - [facility], Main Office Address [address] [place] [address] Assessment Encounter Date Assessment Date Assessment LastModified by Organization Details LastModified Time 09/09/2023 09/09/2023 D/w pt about her findings and further plan of care. Explained about different options for her. Will refer pt to Pulmo. Advised pt to verify with her OB about any new meds due to her . Meds as directed. OTC symptomatic Rx explained in detail. Educated about alarming symptoms to monitor at home and call us back Or get checked in ED if any concerns. F/u as directed. Not available 09/09/2023 11:07:40 Plan of Treatment Reminders Order Date Submit Date Provider Last Modified By Organization Details Last Modified Time Details Appointments None recorded. Lab urinalysis, dipstick 2022 023 [email or web address] [facility], [address] [place] [address], [address], 3 13:57:51 bacterial vaginosis + vaginitis panel, vaginal 2022 023 [email or web address] [facility], [address] [place], [address], 3 09:29:[address] referral 2022 023 [email or web address] Sid Mcintosh MD, [address] [place], [address], 4 12:09:56 Procedures None recorded. Surgeries None recorded. Imaging None recorded. Medication Orders montelukast 10 mg tablet 2022 023 [facility] [place], [address], 3 11:01:03 albuterol sulfate HFA 90 mcg/actuati on aerosol inhaler 2022 023 [facility] [address], [address] [facility], [place], [address], 3 11:00:58 albuterol sulfate 2.5 mg/3 mL (0.083 %) solution for nebulizatio n 2022 023 [facility] [address], [address] [place], [address], 11:00:59 Patient TargetsNo targets recorded. Patient Instructions Encounter Date Encounter Id Patient Instructions Last Modified By Organization Details Last Modified Time 05/29/2023 [id number] Fu in 6 mo for asthma allergies obese [email or web address] Not available 05/29/2023 14:19:42 Reason for Referral Survey Research Associate Referral for M oderate persistent asthma Uncontrolled asthma Referring Physician: Mayco Moralez, Family Medicine, Encounter Date: 09/09/2023 Results Created Date Observation Date Name Description Value Unit Range Abnormal Flag Note LastModifiedBy Organization Detail LastModifiedTime 08/02/20 22 08/02/2022 CULTU RE URINE urc ===== ===== ===== ===== ===== ===== ===== ===== ===== ===== ===== ===== ===== ===== ===== ===== ===== ===== ===== ===== ===== ===== ===== ===== CULTU RE NO.: [id number] Exam Statu s: Final Exam Type: CULTU RE URINE ===== ===== ===== ===== ===== ===== ===== ===== ===== ===== ===== ===== ===== ===== ===== ===== ===== ===== ===== ===== ===== ===== ===== ===== Cultu re Repor t: Organ ism #01 Esche annie a coli (escc ol) Antib iotic s escco l Achie vable Achie vable (01) Dosag e Serum Level Urine Level mcg/m l mcg/m l Winter aura <=2 S 021A Ampic illin <=2 S 021A Ampic illin /Sulb actam <=2 S 021A Cefaz romulo <=4 S 021A Cefep tim <=1 S 021A Cefox itin <=4 S 021A Ceftr iaxon e <=1 S 021A Cipro floxa aura <=0.2 5 S 021A ESBL NEG - 021A Genta micin <=1 S 021A Levof loxac in <=0.1 2 S 021A Merop enem <=0.2 5 S 021A Piper acill in./T azaba <=4 S 021A Tobra mycin <=1 S 021A Trmet hopri m.Sul fa <=20 S 021A rt - Test Card Code AST-G N 021A o2 - Final Organ ism ESCHE R 021A af - Antib iotic Fami TRIME T 021A af - Antib iotic Famil y Na ap - Pheno type Name WILD 021A ap - Pheno type Name Nitro furan toin <=16 S 021A Not Available [facility] (Lab) [address] [place], [address], 08/05/2022 07:46:52 08/02/20 22 08/02/2022 urina lysis , dipst ick Leukocytes (reference range: negative pablo/??l) Trace Not Available [facility] [address], [place], [address], 08/02/2022 11:17:54 08/02/2008/02/2022 urina lysis , dipst ick Nitrite (reference rage: negative mg/dl) positi ve Not Available [address] , [address], [place], [address], 08/02/2022 11:17:54 08/02/2008/02/2022 urina lysis , dipst ick Urobilinogen (reference range: 0.2-1 mg/dl) 0.2 Not Available [address] , [address], [place], [address], 08/02/2022 11:17:54 08/02/2008/02/2022 urina lysis , dipst ick Protein (reference range: negative mg/dl) Negati ve Not Available [address] , [address], [place], [address], 08/02/2022 11:17:54 08/02/2008/02/2022 urina lysis , dipst ick pH (reference range: 5-7) 6.0 Not Available [address] , [address], [place], [address], 08/02/2022 11:17:54 08/02/20 22 08/02/2022 urina lysis , dipst ick Blood (reference range: negative Mati/??l) Modera te Not Available [address] , [address], [place], [address], 08/02/2022 11:17:54 08/02/2008/02/2022 urina lysis , dipst ick Specific Liberty (reference range: 1.005-1.030) 1.020 Not Available [address] , [address], [place], [address], 08/02/2022 11:17:54 08/02/20 22 08/02/2022 urina lysis , dipst ick Ketone (reference range: negative mg/dl) Negati ve Not Available [address] , [address], [place], [address], 08/02/2022 11:17:54 08/02/2008/02/2022 urina lysis , dipst ick Bilirubin (reference range: negative mg/dl) Negati ve Not Available [address] , [address], [place], [address], 08/02/2022 11:17:54 08/02/2008/02/2022 urina lysis , dipst ick Glucose (reference range: negative mg/dl) Negati ve Not Available [address] , [address], [place], [address], 08/02/2022 11:17:54 08/02/2008/02/2022 urina lysis , dipst ick Appearance Slight ly Cloudy Not Available [address] , [address], [place], [address], 08/02/2022 11:17:54 08/02/2008/02/2022 urina lysis , dipst ick Color Dark Yellow Not Available [address] , [address], [place], [address], 08/02/2022 11:17:54 12/22/19 23 12/24/2022 BACTE RIAL VAGIN OSIS, SUNNY atopobium vaginae LOW - 0 score Not Available [facility] (Lab) [address] [place], [address], 12/24/2022 20:08:36 12/22/19 23 12/24/2022 BACTE RIAL VAGIN OSIS, SUNNY bvab 2 LOW - 0 score Not Available [facility] (Lab) [address] [place], [address], 12/24/2022 20:08:36 12/22/19 23 12/24/2022 BACTE RIAL VAGIN OSIS, SUNNY megasphaera 1 LOW - 0 score . Calcu late total score by ebony norman the 3 indiv idual bacte rial vagin osis (BV) marke r score s toget her. Total score is inter prete d as follo ws: Total score 0-1: Indic ates the absen ce of BV. Total score 2: Indet ermin ate for BV. Addit ional clini sarai data shoul d be evalu ated to estab gay a diagn osis. Total score 3-6: Indic ates the prese nce of BV. . This test was devel oped and its perfo rmanc e noe cteri stics deter mined by [facility]. It has not been clear ed or appro surjit by the Food and Drug Admin istra tion. Perfo rmed at: =G - [facility] Zev estjosh [address] [place], [place] [address]s[place] [address] Lab Direc tor: Diana chou MD, Phone : [phone] Not Available [facility] (Lab) [address] [place], [address], 12/24/2022 20:08:36 12/22/19 23 12/21/2022 urina lysis , dipst ick Leukocytes (reference range: negative pablo/??l) Negati ve Not Available [facility], [address], 12/21/2022 12:48:57 12/22/19 23 12/21/2022 urina lysis , dipst ick Nitrite (reference rage: negative mg/dl) negati ve Not Available [address], [address], 12/21/2022 12:48:57 12/22/19 23 12/21/2022 urina lysis , dipst ick Urobilinogen (reference range: 0.2-1 mg/dl) 0.2 Not Available [address], [address], 12/21/2022 12:48:57 12/22/19 23 12/21/2022 urina lysis , dipst ick Protein (reference range: negative mg/dl) Trace Not Available [address], [address], 12/21/2022 12:48:57 12/22/19 23 12/21/2022 urina lysis , dipst ick pH (reference range: 5-7) 6.0 Not Available [address], [address], 12/21/2022 12:48:57 12/22/19 23 12/21/2022 urina lysis , dipst ick Blood (reference range: negative Mati/??l) Negati ve Not Available [address], [address], 12/21/2022 12:48:57 12/22/19 23 12/21/2022 urina lysis , dipst ick Specific Liberty (reference range: 1.005-1.030) 1.020 Not Available [address] [place], [address], 12/21/2022 12:48:57 12/22/19 23 12/21/2022 urina lysis , dipst ick Ketone (reference range: negative mg/dl) Trace Not Available [address], [address], 12/21/2022 12:48:57 12/22/19 23 12/21/2022 urina lysis , dipst ick Bilirubin (reference range: negative mg/dl) Negati ve Not Available [address], [address], 12/21/2022 12:48:57 12/22/19 23 12/21/2022 urina lysis , dipst ick Glucose (reference range: negative mg/dl) Negati ve Not Available [address], [address], 12/21/2022 12:48:57 12/22/19 23 12/21/2022 urina lysis , dipst ick Appearance Clear Not Available [address], [address], 12/21/2022 12:48:57 12/22/1912/21/2022 urina lysis , dipst ick Color Yellow Not Available [address], [address], 12/21/2022 12:48:57 Result Notes None recorded. Problems Name Problem SNOMED Code Status Onset Date Resolution Date Notes Provider Name and Address Organization Details Recorded Time Trying to conceive 692429472 Active 2020 Not Available [facility] 3 00:06:07 Asthma 363866317 Active 2020 Not Available [facility] 3 00:06:07 Morbid obesity 938282760 Active 2020 Not Available [facility] 3 00:06:07 Allergy to shellfish 414275847 Active 2020 Not Available [facility] 3 00:06:07 Obese 164768104 Active 2022 Not Available [facility] 3 00:06:07 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 5744106775480 4 Active 2020 Not Available [facility] 3 00:06:07 Acute vaginitis 98487290 Active 2022 Sinai Trinidad NP [address], [address], [place], [address] , [employer] [employer] [facility] 3 12:37:12 Vaginal irritation 047597637 Active 2022 Sinai Trinidad NP [address], [address], [place], [address] , [employer] [employer] [facility] 3 12:48:55 Constipati on 83329837 Active 2022 Sinai Trinidad NP [address], [address], [place], [address] , [employer] [employer] [facility] 3 14:10:30 Moderate persistent asthma 576797130 Active 2022 Mayco Moralez MD [address], [address], [place], [address] , [facility] 3 10:55:53 Allergic rhinitis 62423550 Active 2022 Mayco Moralez MD [address], [address], [place], [address] , [facility] 3 10:58:55 Obesity 266715012 Active 2022 Mayco Moralez MD [address], [address], [place], [address] , [employer] [facility] 3 11:07:47 Problem Notes None recorded. Medical Equipment None Reported. Allergies Allergen ID Allergen Name Allergen Category Reaction Reaction Severity Criticality Documentation Date Start Date Code Code System Note Provider Name and Address Organization Details Recorded Time 00042 Substance with sulfonami de structure and antibacte rial mechanism of action (substanc e) medicatio n Not available Not available Not available 12/20/2022 76469 8003 SNOMED Not Available [facility] 3 00:06:55 85920 nut - unspecifi ed food edema Not available Not available 12/20/2022 benad ryl helps Not Available [facility] 3 00:06:55 Medications Name Sig Start Date Stop Date Status Note LastModified by Organization Details LastModified Time progesteron e (micro) 200mg supp UNWRAP AND INSERT 1 SUPPOSITO RY VAGINALLY TWICE DAILY DO NOT USE UNTIL ADVISED active Not Available Not Available No t Available fed-ex saturday(07/12) -sat to <no sig> delfino active Not Available Not Available No t Available fed-ex standard overnight -SAT PT HM OV NO SIG CM DECLINED COUNSELIN G active Not Available Not Available No t Available h.c.g trigger 6500units/m l INJECT 6,500 UNITS SUBCUTANE OUSLY - SINGLE DOSE active Not Available Not Available No t Available sharp container USE TO DISPOSE OF NEEDLES active Not Available Not Available No t Available insulin syringe (1ml) 28g 1/2'' USE DIRECTED [H.C.G. MEDICATIO N] TRIGGER active Not Available Not Available No t Available albuterol sulfate 2.5 mg/3 mL (0.083 %) solution for nebulizatio n USE 1 VIAL IN NEBULIZER EVERY 6 HOURS NEEDED active Not Available Not Available No t Available fluconazole 150 mg tablet TAKE 1 TABLET BY MOUTH ONCE DAILY FOR 1 DAY 05/29 completed Not Available Not Available Not Available prednisone 20 mg tablet 09/28 completed Not Available Not Available Not Available sertraline 100 mg tablet active Not Available Not Available Not Available ciprofloxac in 250 mg tablet Take 1 tablet twice a day by oral route for 5 days. 11/23 completed Not Available Not Available Not Available clotrimazol e-betametha sone 1 %-0.05 % topical cream APPLY TO THE AFFECTED AND SURROUNDI NG AREAS OF SKIN BY TOPICAL ROUTE 2 TIMES PER DAY IN THE MORNING AND EVENING FOR 2 WEEKS 05/29 completed Not Available Not Available Not Available omeprazole 20 mg capsule,del ayed release Taking as needed active Not Available Not Available No t Available montelukast 10 mg tablet TAKE 1 TABLET BY MOUTH ONCE DAILY NEEDED active Not Available Not Available No t Available epinephrine 0.3 mg/0.3 mL injection, auto-inject or USE DIRECTED active Not Available Not Available No t Available letrozole 2.5 mg tablet TAKE 2 TABLETS BY MOUTH ONCE DAILY DIRECTED active Not Available Not Available No t Available albuterol sulfate HFA 90 mcg/actuati on aerosol inhaler INHALE 2 PUFFS BY MOUTH EVERY 4 HOURS NEEDED active Not Available Not Available No t Available sertraline 50 mg tablet TAKE 1 TABLET BY MOUTH ONCE DAILY active Not Available Not Available No t Available amoxicillin 500 mg-potassiu m clavulanate 125 mg tablet TAKE 1 TABLET BY MOUTH EVERY 8 HOURS UNTIL GONE 05/29 completed Not Available Not Available Not Available Sure Comfort Insulin Syringe 1 mL 29 gauge x 1/2 USE DIRECTED [H.C.G. MEDICATIO N] active Not Available Not Available No t Available Sprintec (28) 0.25 mg-35 mcg tablet 09/28 completed Not Available Not Available Not Available nitrofurant oin monohydrate /macrocryst als 100 mg capsule TAKE 1 CAPSULE BY MOUTH EVERY 12 HOURS FOR 5 DAYS 07/30 completed Not Available Not Available Not Available budesonide- formoterol HFA 160 mcg-4.5 mcg/actuati on aerosol inhaler INHALE 2 PUFFS BY MOUTH TWICE DAILY active Not Available Not Available No t Available 28 mg iron-800 mcg tablet TAKE 1 TABLET BY MOUTH ONCE DAILY active Not Available Not Available No t Available 28 mg-800 mcg tablet Take 1 tablet every day by oral route for 90 days. 05/29 completed Not Available Not Available Not Available Vitals Date Recorded Body mass index (BMI) Body height Oxygen saturation Oxygen saturation in Arterial blood by Pulse oximetry Heart rate Respiratory rate Body temperature Body weight Systolic blood pressure Diastolic blood pressure Provider Name and Address Organization Details Last Updated DateTime 3 38.9 kg/m2 170.18 cm 98 % 98 % 89 /min 16 /min 98.8 [degF] 844541. 7 g 123 mm[Hg] 81 mm[Hg] Not Available [facility] 3 00:05:54 Date Recorded Body height Provider Name an d Address Organization Details Last Updated DateTime 08/02/2022 170.18 cm Not Available [facility] 3 00:05:54 Date Recorded Body height Body mass index (BMI) Body weight Body temperature Heart rate Oxygen saturation Oxygen saturation in Arterial blood by Pulse oximetry Systolic blood pressure Diastolic blood pressure Provider Name and Address Organization Details Last Updated DateTime 3 170.18 cm 39 kg/m2 078248. 5 g 97.7 [degF] 88 /min 98 % 98 % 104 mm[Hg] 76 mm[Hg] Wilma torres CMA [facility] 3 12:22:27 Date Recorded Body height Body mass index (BMI) Body weight Body temperature Heart rate Respiratory rate Oxygen saturation Oxygen saturation in Arterial blood by Pulse oximetry Systolic blood pressure Diastolic blood pressure Provider Name and Address Organization Details Last Updated DateTime 3 170.18 cm 40.6 kg/m2 457748. 17 g 96.7 [degF] 68 /min 16 /min 95 % 95 % 118 mm[Hg] 79 mm[Hg] Sinai Curtis RN [facility] 3 14:01:08 Date Recorded Body height Body mass index (BMI) Body weight Body temperature Heart rate Oxygen saturation Oxygen saturation in Arterial blood by Pulse oximetry Systolic blood pressure Diastolic blood pressure Provider Name and Address Organization Details Last Updated DateTime 3 170.18 cm 43.1 kg/m2 469375. 25 g 97.3 [degF] 86 /min 99 % 99 % 122 mm[Hg] 76 mm[Hg] [facility] [employer] 3 10:51:52 Date Recorded Respiratory rate Provider Name a nd Address Organization Details Last Updated DateTime 09/09/2023 20 /min Lm Brizuela [address] [place] [address], [address], [place] [facility] 09/09/2023 10:52:41 Social History Question Answer Notes LastModified by Organizat ion Details LastModified Time Tobacco Smoking Status Never Smoker [facility] 09/09/2023 10:46:42 Do You Have An Advance Directive? No [email or web address] Information not available 05/29/2023 What Is Your Level Of Alcohol Consumption? Moderate [id number] Information not available 12/20/2022 Is Blood Transfusion Acceptable In An Emergency? Yes [email or web address] Information not available 09/09/2023 What Is Your Level Of Caffeine Consumption? Occasional [id number] Information not available 12/20/2022 What Is Your Code Status? Full Code [email or web address] Information not available 09/09/2023 In The 14 Days Before Symptom Onset, Have You Had Close Contact With A Laboratory-confi rmed COVID-19 While That Case Was Ill? No [email or web address] Information not available 09/09/2023 In The 14 Days Before Symptom Onset, Have You Had Close Contact With A Person Who Is Under Investigation For COVID-19 While That Person Was Ill? No Information not available 09/09/2023 What Type Of Diet Are You Following? REGULAR [id number] Information not available 12/20/2022 What Is The Highest Grade Or Level Of School You Have Completed Or The Highest Degree You Have Received? 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 Yes [email or web address] Information not available 09/09/2023 Where Do You Live? [facility] [email or web address] Information not available 09/09/2023 Do You Have A Medical Power Of Hostel Manager? No [email or web address] Information not available 09/09/2023 How Many Children Do You Have? 0 [email or web address] Information not available 09/09/2023 Have You Ever Been Counseled For Unhealthy Alcohol Use? No [email or web address] Information not available 09/09/2023 Do You Have Any Pets? Yes [email or web address] Information not available 09/09/2023 What Is Your Relationship Status? [id number] Information not available 12/20/2022 Do You Use Your Seat Belt Or Car Seat Routinely? Yes [email or web address] Information not available 09/09/2023 Do You Have Smoke And Carbon Monoxide Detectors In Your Home? Yes [email or web address] Information not available 09/09/2023 Are There Any Smokers In Your House? No [email or web address] Information not available 09/09/2023 Do You Participate In Social Media? Yes [email or web address] Information not available 09/09/2023 Do You Feel Stressed (tense, Restless, Nervous, Or Anxious, Or Unable To Sleep At Night)? EQ9720-8 [email or web address] Information not available 09/09/2023 Do You Use Any Illicit Or Recreational Drugs? No [email or web address] Information not available 09/09/2023 Do You Use Sunscreen Routinely? Yes [email or web address] Information not available 09/09/2023 Has Tobacco Cessation Counseling Been Provided? No [email or web address] Information not available 09/09/2023 Have You Recently Traveled Abroad? No [email or web address] Information not available 09/09/2023 Do You Or Have You Ever Used Any Other Forms Of Tobacco Or Nicotine? No [email or web address] Information not available 09/09/2023 Sex: Female Functional Status Question Answer Note LastModified by Organizat ion Details LastModified Time What is your exercise level? Occasional [id number] Information not available 12/20/2022 Mental Status None recorded. Family History Relationship Description Onset Age of this Age Resolved Age Notes LastModified by Organization Details LastModified Time Father Diabetes mellitus [id number] Not available 12/20/2022 00:05:09 Paternal Grandmother Malignant tumor of lung 70 [email or web address] Not available 09/09 10:46:41 Medical History No medical history recorded. Gynecological History Statement/Question Response Flow Moderate Date of LMP 05/13/2023 Frequency of Cycle (Q days) 28 Menses Monthly Y STIs/STDs N Duration of Flow (days) 4 Breast Problems None Discharge None Obstetrics History GPAL:G 0 P 0 0 0 0 Immunizations Vaccine Type Date Status Note Provider Nam e and Address Organization Details Recorded Time Tdap 11/23/2022 completed Not Available [facility] 12/20/2022 00:06:54 Past Encounters Encounter ID Performer Location Encounter Start Date Encounter Closed Date Diagnosis/Indication Diagnosis SNOMED-CT Code Diagnosis ICD10 Code [id number] [facility] Teagan moore [address] [facility] [place] [address] 09/28/2021 00:00:00 09/28/2021 12:10:30 [id number] [address] [place] [address] 07/30/2022 00:00:00 08/01/2022 10:04:53 [id number] [place] [address] [place] [address] 08/02/2022 00:00:00 08/02/2022 12:27:[id number] [address] 11/23/2022 00:00:00 11/23/2022 15:32:53 [id number] Sinai Trinidad NP [address] [address] 12/21/2022 12:08:24 12/21/2022 12:51:19 Acute vaginitis 13966391 N76.0 Vaginal irritation 54951 6004 N89.8 [id number] Sinai Trinidad NP [address] [address] 05/29/2023 13:53:05 05/29/2023 14:25:30 Asthma 314982570 J45.909 Obese 288745287 E66.9 Constipation 09982176 9.00 [id number] Mayco Moralez MD [address] [address] 09/09/2023 10:46:06 09/09/2023 11:09:23 Moderate persistent asthma 479952144 J45.40 00260103 Z33.1 Allergic rhinitis 844022 04 J30.9 Obesity 056961721 E66.9 Health Concerns Section Related Observation LastModified by Organization Detai ls LastModified Time None Recorded Concern Status LastModified by Organization Details LastModified Time None Recorded Advance Directives Directive N: Payers Encounter Date Sequence Insurance Name Policy Number Policy [place] Covered Member ID [place] Member ID Guarantor Name 12/21/2022 1 [place]) 113 Georgina Murrell [id number] Georgina Murrell 05/29/2023 1 [place] 113 Georgina Murrell [id number] Georgina Murrell 09/09/2023 1 [place] 113 Georgina Murrell [id number] Georgina Murrell Notes Date Note Type Note Provider Name and Address Organization Details Recorded Time 12/21/2022 text/html Pt. here due to possible UTI. Pt. started with urgency on Saturday. She also noticed her urine was cloudy. Yesterday, she woke up with more urgency and had painful urination. She got AZO which helped. Denies itching; has clear, normal discharge. She was recently on Augmentin for a tooth infection; took it - Nov. right before going on vacation to [place]. She was in a wet swimsuit a lot on vacation. Sinai Trinidad NP [address], [address], [place], [address], [employer] 12/21/2022 12:49:38 05/29/2023 text/html Here for Asthma- has been needing inhalers 3 times daily. Has been wheezing. Using zyrtec bid. Using budesonide-formote rol HFA bid already.IUI- done per F[facility] verdin at [facility]- started on sertraline 50 mg po daily. Sleeping well. Sinai Trinidad NP [address], [address], [place], [address], [employer] 05/29/2023 14:21:26 09/09/2023 text/html ACV: C/o her asthma not being controlled. Pt is about 9 wks and she is f/u with her OB for it. This is her 1st . Pt says she was not taking Montelukast regularly for last year and her OB is Ok to restart on it and she needs Rx for it. Pt has seen Director Of Corporate Sponsorships in [place] in the past and was on allergy shots by them. Still has night time cough and wheezing on few days/week. Denies any other concern. Mayco Moralez MD [address] [facility], [place] [address], [place], [address], [facility] 09/09/2023 11:08:29 OBGyn Episode No OBEpisode recorded.
--- OUTSIDE RECORDS SUMMARY | 2024-10-20 13:42 | XMS_ITS | Encounter Summary ---
Author Organization [facility] Address [address] [place] [address] Care Team Providers Care Boiler Blower Name Role Phone Pcp, Unknown Primary Care Provider Unavailabl e Reason for Visit * Reason Comments DRUG SCREEN TERI Resp Encounter Details Date Type Department Care Team (Latest Contact Info) Description 06/04/2013 2:45 PM CDT - 06/04/2013 11:59 PM CDT Hospital Encounter [facility] [address] [place], [place] [address] Patricia Mcbride, DO [address] [place], [place] [address] Discharge Disposition: Home or Self Care Social History Tobacco Use Types Packs/Day Years Used Date Smoking Tobacco: Never Assessed Sex and Gender Information Value Date Recorded Sex Assigned at Not on file Gender Identity Not on file Sexual Orientation Not on file documented as of this encounter Progress Notes * Pablito Parada PTA - 06/04/2013 3:12 PM CDT Patient referred for drug screening. TERI Resp documented in this encounter Plan of Treatment Not on file documented as of this encounter Visit Diagnoses Diagnosis Other general medical examination for administrative purposes- Primary documented in this encounter Care Teams Boiler Blower Relationship Specialty Start Date End Date Pcp, [place] [address] PCP - General 05/29/13 documented as of this encounter
--- OUTSIDE RECORDS SUMMARY | 2024-10-20 13:42 | XMS_ITS | Encounter Summary ---
Author Organization [facility] Address [address] [place] [address]. [place] [address] [place] [address] Care Team Providers Care Nuclear Reactor Operator Name Role Phone Elieser Houston Primary Care Provider [phone] Reason for Referral * Consultation (Routine) - Authorized Specialty Diagnoses / Procedures Referred By Contact Referred To Contact PULMONARY DISEASE / SLEEP & RESPIRATORY CARE Diagnoses Moderate persistent asthma without complication ([facility]) Procedures OFFICE/OUTPATIENT NEW LOW MDM 30-44 MINUTES OFFICE/OUTPT VISIT,NEW,LEVL IV OFFICE/OUTPT VISIT,NEW,LEVL V OFFICE/OUTPT VISIT,EST,LEVL III OFFICE/OUTPT VISIT,EST,LEVL IV OFFICE/OUTPT VISIT,EST[place] [address] [place] [address] Phone: tel:[phone] fax:[phone] [facility] - [facility] [address], [address] [place] [address] Phone: tel: fax: Referral ID Status Reason Start Date Expiration Date Visits Requested Visits Authorized [id number] Authorized Specialty Services 11/12/2023 12/12/2024 99 99 Scheduling Instructions Pt lives in [place]. So closer to there is better. OMER OPERATIONS SPECIALIST Reason for Visit * Reason Comments New Patient Establish care Encounter Details Date Type Department Care Team (Late st Contact Info) Description 11/12/2023 7:00 AM CUSTOMER OPERATIONS SPECIALIST Office Visit [facility] Family [facility] Internal Medicine [facility] [address] [place] [address] [place] [address] [place] [address] New Patient (Establish care/) Social History Tobacco Use Types Packs/Day Years Used Date Smoking Tobacco: Never Smokeless Tobacco: Never Tobacco Cessation:Counseling Given: No Alcohol Use Standard Drinks/Week Comments Not Currently 0 (1 standard drink = 0.6 oz pur e alcohol) PHQ-2 Answer Date Recorded Patient Health Questionnaire-2 Score 0 11/12/2023 Estimated Date of Delivery Comme nts Yes 04/10/2024 Sex and Gender Information Value Date Recorded Sex Assigned at Not on file Legal Sex Female 3:26 PM CUSTOMER OPERATIONS SPECIALIST Gender Identity Not on file Sexual Orientation Not on file documented as of this encounter Last Filed Vital Signs Vital Sign Reading Time Taken Comments Blood Pressure 141/83 11/12/2023 7:16 AM CUSTOMER OPERATIONS SPECIALIST Pulse 77 11/12/2023 7:04 AM CUSTOMER OPERATIONS SPECIALIST Temperature 37.1 ??C (98.7 ??F) 11/12/2023 7:04 AM CS T Respiratory Rate 16 11/12/2023 7:04 AM CUSTOMER OPERATIONS SPECIALIST Oxygen Saturation 97% 11/12/2023 7:04 AM CUSTOMER OPERATIONS SPECIALIST Inhaled Oxygen Concentration - - Weight 129.7 kg (286 lb) 11/12/2023 7:04 AM CUSTOMER OPERATIONS SPECIALIST Height 167.6 cm (5' 6 ) 11/12/2023 7:04 AM CUSTOMER OPERATIONS SPECIALIST Body Mass Index 46.16 11/12/2023 7:04 AM CUSTOMER OPERATIONS SPECIALIST documented in this encounter Progress Notes * ANA Kamara - 11/12/2023 7:00 AM CST Reason for Visit: New Patient (Establish care/) History of Present Illness: 20-year-old for male with history of uncontrolled persistent intermittent asthma here for follow-up. She is transferring care from [place]. She is currently on Symbicort and using albuterol rescue inhaler 2-3 times a day. She had referral to pulmonology but for what ever reason they were unable to schedule her for it so she got aggravated and left the practice and [place]. She has recently been seen for an acute exacerbation of the asthma and [facility] and currently on steroids and Augmentin. Patient states she is no longer having any acute symptoms. Denies shortness of breath wheezing fever chills today. Patient's 18 weeks and is seeing VIDEO CLERK. Her asthmatic symptoms seem to have gotten worse since the . Denies any suprapubic cramping, vaginal discharge or bleeding. Patient states is coming along just fine. New Patient ROS: Review of Systems All other systems reviewed and are negative. Medications: Current Outpatient Medications: albuterol (PROVENTIL) (2.5 MG/3ML) 0.083% nebulizer solution, Take 3 mLs (2.5 mg total) by nebulization every 6 (six) hours as needed., Disp: , Rfl: albuterol sulfate HFA 108 (90 Base) MCG/ACT inhaler, Inhale 2 puffs into the lungs every 6 (six) hours as needed., Disp: , Rfl: amoxicillin-clavulanate (AUGMENTIN) 875-125 MG tablet, Take 1 tablet (875 mg total) by mouth 2 (two) times daily., Disp: , Rfl: Nmowopj-Knycgjwpips-Hcngwwphvu (BREZTRI AEROSPHERE) 160-9-4.8 MCG/ACT Aerosol, Inhale 2 Inhalationsinto the lungs 2 (two) times daily for 30 days., Disp: 10.7 g, Rfl: 5 cetirizine (ZYRTEC) 10 MG tablet, Take 1 tablet (10 mg total) by mouth daily., Disp: , Rfl: EPINEPHrine 0.3 MG/0.3ML injection, Inject 0.3 mLs (0.3 mg total) into the muscle as needed., Disp:, Rfl: montelukast (SINGULAIR) 10 MG tablet, Take 1 tablet (10 mg total) by mouth nightly at bedtime., Disp: , Rfl: predniSONE (DELTASONE) 20 MG tablet, Take 0.5 tablets (10 mg total) by mouth daily., Disp: , Rfl: sertraline (ZOLOFT) 50 MG tablet, Take 2 tablets (100 mg total) by mouth daily., Disp: , Rfl: Review of patient's allergies indicates: Allergen Reactions Almonds Hives, Itching and Swelling Pecans Swelling Sulfa Antibiotics Unknown Black [place] Pollen Allergy Skin Test Swelling Pt had allergy testing with this showing up as an allergy Shellfish Allergy Unknown Pt had allergy testing with this showing as an allergy Past Medical History: Diagnosis Date Anxiety 2021 Asthma GERD (gastroesophageal reflux disease) History reviewed. No pertinent surgical history. Social History Socioeconomic History Marital status: Tobacco Use Smoking status: Never Smokeless tobacco: Never Substance and Sexual Activity Alcohol use: Not Currently Comment: Drug use: Never Sexual activity: Yes Partners: Male control/protection: None Comment: Trying to concieve 2 yeasz E-Cigarettes Questions Responses E-Cigarette Use Never Assessed Family History Problem Relation Name Age of Onset Diabetes Father Dad Cancer Maternal Grandmother Alissa Cervical/stomach Cancer Maternal Grandfather Leigha Lung Cancer Kidney Disease Paternal Grandmother Geoffrey Family Status Relation Name Status Mother Alive Father Dad Alive MGM Alissa (Not Specified) MGF Leigha (Not Specified) PGM Geoffrey (Not Specified) Physical Exam Constitutional: Appearance: Normal appearance. HENT: Right Ear: Tympanic membrane normal. Left Ear: Tympanic membrane normal. Mouth/Throat: Mucous membranes are moist. Oropharynx is clear. Eyes: Pupils: Pupils are equal, round, and reactive to light. Cardiovascular: Rate and Rhythm: Normal rate and regular rhythm. Pulmonary: Effort: Pulmonary effort is normal. Breath sounds: Normal breath sounds. Neurological: Mental Status: She is alert. Filed Vitals: 11/12/23 0704 11/12/23 0716 BP: (!) 143/85 (!) 141/83 Pulse: 77 Resp: 16 Temp: 98.7 ??F (37.1 ??C) TempSrc: Core SpO2: 97% Weight: 129.7 kg (286 lb) Height: 1.676 m (5' 6 ) Diagnoses/Impression: 1. Moderate persistent asthma without complication ([facility]) Ambulatory referral to Pulmonology (OTHER) Jhqwtgu-Lchnwazvvye-Qyjpwkgmqx (BREZTRI AEROSPHERE) 160-9-4.8 MCG/ACT Aerosol 2. 18 weeks gestation of ([facility]) Recommendations and Plan: F/u obgyn as directed. Pulomonology consult. In the mean time will start Breztri Orders Placed This Encounter Ambulatory referral to Pulmonology (OTHER) albuterol (PROVENTIL) (2.5 MG/3ML) 0.083% nebulizer solution albuterol sulfate HFA 108 (90 Base) MCG/ACT inhaler amoxicillin-clavulanate (AUGMENTIN) 875-125 MG tablet DISCONTD: SYMBICORT 160-4.5 MCG/ACT inhaler EPINEPHrine 0.3 MG/0.3ML injection predniSONE (DELTASONE) 20 MG tablet montelukast (SINGULAIR) 10 MG tablet sertraline (ZOLOFT) 50 MG tablet cetirizine (ZYRTEC) 10 MG tablet Bmqmxwz-Xhwwydlesex-Agciojzdmj (BREZTRI AEROSPHERE) 160-9-4.8 MCG/ACT Aerosol Reviewed and updated this visit by provider: ANA KAMARA Referring Provider: No ref. provider found PCP: ANA KAMARA Cosigned by Gerhard Snog MD at 11/12/2023 12:01 PM CUSTOMER OPERATIONS SPECIALIST OMER OPERATIONS SPECIALIST OMER OPERATIONS SPECIALIST OMER OPERATIONS SPECIALIST documented in this encounter Plan of Treatment Upcoming Encounters Date Type Department Care Team (Late st Contact Info) Description 11/16/2024 10:20 AM CUSTOMER OPERATIONS SPECIALIST Office Visit [facility] - [facility] [address] [place] [address] Merlin Murrell DO [address] [place] [address] Scheduled Referrals Name Type Priority Associated Diagnoses Orde r Schedule Ambulatory referral to Pulmonology (OTHER) Referral Routine Moderate persistent asthma without complication ([facility]) Ordered: 11/12/2023 documented as of this encounter Visit Diagnoses Diagnosis Moderate persistent asthma without complication ([facility])- Primary Unspecified asthma 18 weeks gestation of ([facility]) state, incidental documented in this encounter Care Teams Nuclear Reactor Operator Relationship Specialty [place] [address] [place] [address] PCP - General Physician Sheet Metal Duct Installer Helper Medical 11/05/23 documented as of this encounter
--- OUTSIDE RECORDS SUMMARY | 2024-10-20 13:42 | XMS_ITS | Encounter Summary ---
Author Organization [facility] Address [address] [place] [address]. [place] [address] [place] [address] Care Team Providers Care Manager Cath Lab Name Role Phone Elieser Houston Primary Care Provider [phone] Encounter Details Date Type Department Care Team (Latest Contact Info) Description 03/30/2024 Scan HEALTH INFO SRVCS Scanned, Doc Med [...] on file Legal Sex Female 3:26 PM GMAT TUTOR Gender Identity Not on file Sexual Orientation Not on file documented as of this encounter Plan of Treatment Upcoming Encounters Date Type Department Care Team (Late st Contact Info) Description 11/16/2024 10:20 AM GMAT TUTOR Office Visit [facility] Multispecialty Care - [facility] [address] [place] [address] Merlin Murrell DO [address] [place] [address] documented as of this encounter Visit Diagnoses Not on filedocumented in this encounter Care Teams Manager Cath Lab Relationship Specialty [place] [address] [place] [address] PCP - General Physician Speech Therapist Technician Medical 11/05/23 documented as of this encounter
--- OUTSIDE RECORDS SUMMARY | 2024-10-20 13:42 | XMS_ITS | Encounter Summary ---
Author Organization [facility] Address [address] [place] [address]. [place] [address] [place] [address] Care Team Providers Care Felt Puller Name Role Phone Elieser Houston Primary Care Provider [phone] Reason for Visit * Reason Comments Ultrasound (SCAN) Encounter Details Date Type Department Care Team (Late Contact Info) Description 03/10/2024 Scan HEALTH INFO SRVCS Scanned, Doc Med Group Ultrasound (SCAN) Social History Tobacco Use Types Packs/Day Years [...] on file Legal Sex Female 3:26 PM PARTY PLAN SALES DIRECTOR Gender Identity Not on file Sexual Orientation Not on file documented as of this encounter Plan of Treatment Upcoming Encounters Date Type Department Care Team (Late Contact Info) Description 11/16/2024 10:20 AM PARTY PLAN SALES DIRECTOR Office Visit [facility] Multispecialty Care - [facility] [address] [place] [address] Merlin Murrell DO [address] [place] [address] documented as of this encounter Procedures Procedure Name Priority Date/Time Associated Diagnosis Comments ULTRASOUND GENERIC (SCAN ORDER) 03/10/2024 documented in this encounter Results * ULTRASOUND GENERIC (SCAN ORDER) (03/10/2024) Anatomical Region Laterality Modality Other 03/10/2024 us Doc Med Group Scanned SCANNING Final Resu lt documented in this encounter Visit Diagnoses Not on filedocumented in this encounter Care Teams Felt Puller Relationship Specialty [place] [address] [place] [address] PCP - General Physician Yarn Weight And Strength Tester Medical 11/05/23 documented as of this encounter
--- OUTSIDE RECORDS SUMMARY | 2024-10-20 13:42 | XMS_ITS | Encounter Summary ---
Author Organization [facility] Address [address] [place] [address]. [place] [address] [place] [address] Care Team Providers Care Religious Education Director Name Role Phone Elieser Houston Primary Care Provider [phone] Encounter Details Date Type Department Care Team (Late Contact Info) Description 03/09/2024 Utility Fundingt Message Enc [facility] Family & Internal Medicine [address] [address] [place] [address] [place] [address] Prescription refill Social History Tobacco Use Types Packs/Day Years [...] file Legal Sex Female 3:26 PM GENERAL DUTY NURSE Gender Identity Not on file Sexual Orientation Not on file documented as of this encounter Plan of Treatment Upcoming Encounters Date Type Department Care Team (Late Contact Info) Description 11/16/2024 10:20 AM GENERAL DUTY NURSE Office Visit [facility] Multispecialty Care - [address], [address] [place] [address] Merlin Murrell DO [address] [place] [address] documented as of this encounter Visit Diagnoses Not on filedocumented in this encounter Care Teams Religious Education Director Relationship Specialty [place] [address] [place] [address] PCP - General Physician Pct Medical 11/05/23 documented as of this encounter
--- OUTSIDE RECORDS SUMMARY | 2024-10-20 14:02 | XMS_ITS | Encounter Summary ---
Author Organization [facility] Address [address] [place] [address]. [place] [address] [place] [address] Care Team Providers Care City Attorney Name Role Phone Elieser Houston Primary Care Provider Reason for Visit * Reason Onset Date Comments Error 03/18/2024 Encounter Details Date Type Department Care Team (Late st Contact Info) Description 03/18/[address] [facility] [address] [address] Merlin Murrell DO [address] [facility] [address] [place] [address] Error Social History Tobacco Use Types [...] on file Legal Sex Female 3:26 PM POMOLOGIST Gender Identity Not on file Sexual Orientation [...] with my primary so I???m current at [facility] in [place]. I tried calling the [facility] but says office is closed. I guess I will need to reschedule unless you have anything open this morning thank you documented in this encounter Plan of Treatment Upcoming Encounters Date Type Department Care Team (Late st Contact Info) Description 11/16/2024 10:20 AM POMOLOGIST Office Visit [facility] Mult[facility]pecialty Care - [facility] [address] [place] [address] Merlin Murrell DO [address] [facility] [address] [place] [address] documented as of this encounter Visit Diagnoses Not on filedocumented in this encounter Care Teams City Attorney Relationship Specialty Start [place] [address] [place] [address] PCP - General Physician Hide Handler Medical 11/05/23 documented as of this encounter
--- OUTSIDE RECORDS SUMMARY | 2024-10-20 14:02 | XMS_ITS | Encounter Summary ---
Author Organization [facility] Address [address] [place] [address]. [place] [address] [place] [address] Care Team Providers Care Instructional Assistant Name Role Phone Elieser Houston Primary Care Provider [phone] Encounter Details Date Type Department Care Team [...] on file Legal Sex Female 3:26 PM SILVICULTURIST Gender Identity Not on file Sexual Orientation Not on file documented as of this encounter Plan of Treatment Upcoming Encounters Date Type Department Care Team (Late st Contact Info) Description 11/16/2024 10:20 AM SILVICULTURIST Office Visit [facility] Multispecialty Care - [facility] [address] [place] [address] Merlin Murrell DO [address] [place] [address] documented as of this encounter Visit Diagnoses Not on filedocumented in this encounter Care Teams Instructional Assistant Relationship Specialty [place] [address] [place] [address] PCP - General Physician Enterprise Software Engineer Medical 11/05/23 documented as of this encounter
--- OUTSIDE RECORDS SUMMARY | 2024-10-20 14:02 | XMS_ITS | Encounter Summary ---
Author Organization [facility] Address [address] [place] [address] Care Team Providers Care Refrigerator Repair Technician Name Role Phone Pcp, Unknown Primary Care Provider Unavailabl e Reason for Visit * Reason Comments DRUG SCREEN TERI Resp Encounter Details Date Type Department Care Team (Latest Contact Info) Description 06/04/2013 2:45 PM CDT - 06/04/2013 11:59 PM CDT Hospital Encounter [facility] [address] [place], [place] [address] Patricia Mcbride, DO [address] [place], [place] [address] Discharge Disposition: Home or Self Care Social [...] Primary documented in this encounter Care Teams Refrigerator Repair Technician Relationship Specialty Start Date End Date Pcp, [place] [address] PCP - General 05/29/13 documented as of this encounter
--- OUTSIDE RECORDS SUMMARY | 2024-10-20 14:02 | XMS_ITS | Encounter Summary ---
Author Organization [facility] Address [address] [place] [address]. [place] [address] [place] [address] Care Team Providers Care Vision Therapist Name Role Phone Elieser Houston Primary Care Provider [phone] Reason for Visit * Reason Comments Follow Up asthma * Consultation (Routine) - Authorized Specialty Diagnoses / Procedures Referred By Contact Referred To Contact PULMONARY DISEASE / SLEEP & RESPIRATORY CARE Diagnoses Moderate persistent asthma without complication ([facility]) Procedures OFFICE/OUTPATIENT NEW LOW MDM 30-44 MINUTES OFFICE/OUTPT VISIT,NEW,LEVL IV OFFICE/OUTPT VISIT,NEW,LEVL V OFFICE/OUTPT VISIT,EST,LEVL III OFFICE/OUTPT VISIT,EST,LEVL IV OFFICE/OUTPT VISIT,EST,[place] [address] [place] [address] Phone: tel:[phone] fax:[phone] [facility] [place] - [address], [address] [place] [address] Phone: tel: fax: Referral ID Status Reason Start Date Expiration Date Visits Requested Visits Authorized [id number] Authorized Specialty Services 11/12/2023 12/12/2024 99 99 Encounter Details Date Type Department Care Team (Latest Contact Info) Description 05/14/2024 10:30 AM CDT [facility] [address] [place] [address] Merlin Murrell DO [address] [place] [address] Follow Up (asthma) Social History Tobacco Use [...] on file Legal Sex Female 3:26 PM CREDIT SUPPORT COUNSELOR Gender Identity Not on file Sexual Orientation [...] questions or concerns please send us a QuantumT message for the most timely response. However, you can always call us at ([phone]) during office hours It was my pleasure [...] use a QR scanner sharon through the SnapUp). If you don't have a smart phone and want to leave a review for me you can always search Dr. Joe Murrell DO Google review to let us know how we are doing. Sincerely, Dr. Joe Murrell documented in this encounter Progress Notes * Merlin Murrell DO - 05/14/2024 10:30 AM CDT [facility] PULMONARY MEDICINE CLINIC NOTE History [...] to see Dr. Moralez / wale in [place]. -- became in jul 2023, since [...] breztri 2 puffs bid. We discussed no care home safety data on several component -- [...] asbestos. Pets: + lehman retriever / and sammarinese clay. + allergy to cat dander. Occ: + RT, works at [employer] reviewed: None to review. Testing/Data reviewed: [...] Swelling Pecans Swelling Sulfa Antibiotics Unknown Black [place] Pollen Allergy Skin Test Swelling Pt had allergy testing with this showing up as an allergy Shellfish Allergy Unknown Pt had allergy testing with this showing as an allergy Immunization History Administered Date(s) Administered Dtap (Acel-Immune) 05/30/2000 Dtp (Generic) 1995 Dtp/Hib (Tetramune) 1995, 02/14/1996, 09/11/1996 Hepatitis B Pediatric 1995, 1995, 02/14/1996 Hib (Generic) 1995 Influenza 08/12/2009, 08/11/2013 Influenza Adult (Generic) 08/03/2015, 07/19/2019, 09/16/2023 AirPR (Buyapowa) COVID-19 AD26 VACCINE 0.5 ML IM SUSP [...] prn. RTC [address] Joe Murrell [facility] Pulmonary Medicine documented in this encounter Plan of Treatment Upcoming Encounters Date Type Department Care Team (Late st Contact Info) Description 11/16/2024 10:20 AM CREDIT SUPPORT COUNSELOR Office Visit [facility] Multispecialty Care - [facility] [address] [place] [address] Merlin Murrell DO [address] [place] [address] documented as of this encounter Visit Diagnoses Diagnosis Moderate persistent asthma without complication ([facility])- Primary Unspecified asthma Morbid (severe) obesity due to excess calories ([facility]) Allergic rhinitis due to pollen, unspecified seasonality documented in this encounter Care Teams Vision Therapist Relationship Specialty [place] [address] [place] [address] PCP - General Physician Electrical Service Technician Medical 11/05/23 documented as of this encounter
--- OUTSIDE RECORDS SUMMARY | 2024-10-20 14:02 | XMS_ITS | Encounter Summary ---
Author Organization [facility] Address [address] [place] [address]. [place] [address] [place] [address] Care Team Providers Care Machine Puller Name Role Phone Elieser [place] Primary Care Provider [phone] Reason for Visit * Reason Comments Follow Up * Consultation (Routine) - Authorized Specialty Diagnoses / Procedures Referred By Contact Referred To Contact PULMONARY DISEASE / SLEEP & RESPIRATORY CARE Diagnoses Moderate persistent asthma without complication ([facility]) Procedures OFFICE/OUTPATIENT NEW LOW MDM 30-44 MINUTES OFFICE/OUTPT VISIT,NEW,LEVL IV OFFICE/OUTPT VISIT,NEW,LEVL V OFFICE/OUTPT VISIT,EST,LEVL III OFFICE/OUTPT VISIT,EST,LEVL IV OFFICE/OUTPT VISIT,EST,[place] [address] [place] [address] Phone: tel:[phone] fax: [facility] - [address], [address] [place] [address] Phone: tel: fax: Referral ID Status Reason Start Date Expiration Date Visits Requested Visits Authorized [id number] Authorized Specialty Services 11/12/2023 12/12/2024 99 99 Encounter Details Date Type Department Care Team (Late st Contact Info) Description 03/23/2024 9:30 AM CDT [facility] [address] [place] [address] Merlin Murrell DO [address] [facility] [address] [place] [address] Follow Up Social History Tobacco Use Types [...] file Legal Sex Female 3:26 PM MANAGER SOCIAL Gender Identity Not on file Sexual Orientation [...] questions or concerns please send us a CeroraT message for the most timely response. However, you can always call us at ([phone]) during office hours It was my pleasure [...] use a QR scanner sharon through the Thefuture.fme). If you don't have a smart phone and want to leave a review for me you can always search Dr. Joe Murrell DO Google review to let us know how we are doing. Sincerely, Dr. Joe Murrell documented in this encounter Progress Notes * Merlin Murrell DO - 03/23/2024 9:[address] [facility] PULMONARY MEDICINE CLINIC NOTE History of Present [...] to see Dr. Moralez / wale in [place], [place]. -- became in jul 2023, since [...] breztri 2 puffs bid. We discussed no custodial safety data on several component -- notes [...] asbestos. Pets: + lehman retriever / and [place] citizen clay. + allergy to cat dander. Occ: + RT, works at [employer] reviewed: None to review. Testing/Data reviewed: Labs: Echo: PFT: Sleep Data: Past Medical History: Diagnosis Date 2021 Asthma ([facility]) GERD (gastroesophageal reflux disease) History reviewed. No [...] Swelling Pecans Swelling Sulfa Antibiotics Unknown Black [place] Pollen Allergy Skin Test Swelling Pt had [...] and cxr records from Dr. Moralez. In [facility]. ===> requested records again. -- continue brezdtri. [...] the day of the encounter. This includes magt-xn-ryuu and glq-tjal-sz-face time I provided on the day of the encounter & excludes time spent performing separately reportable services. Addendum 04/19/24: records review Pft 05/2021: ratio 74, fev1 3.1L, 93%. FVC 4.17L 107%, FVL wnl. Dr. Joe Murrell [facility] Pulmonary Medicine documented in this encounter Plan of Treatment Upcoming Encounters Date Type Department Care Team (Late st Contact Info) Description 11/16/2024 10:20 AM MANAGER SOCIAL Office Visit [facility] Multispecialty Care - [facility] [address] [place] [address] Merlin Murrell DO 3 [facility] [address] [place] [address] documented as of this encounter Visit Diagnoses Diagnosis Moderate persistent asthma without complication ([facility])- Primary Unspecified asthma Morbid (severe) obesity due to excess calories ([facility]) Allergic rhinitis due to pollen, unspecified seasonality , unspecified gestational age ([facility]) documented in this encounter Care Teams Machine Puller Relationship Specialty [place] [address] [place] [address] PCP - General Physician Development Educator Medical 11/05/23 documented as of this encounter
--- OUTSIDE RECORDS SUMMARY | 2024-10-20 14:02 | XMS_ITS | Encounter Summary ---
Author Organization [facility] Address [address] [place] [address]. [place] [address] [place] [address] Care Team Providers Care Traffic I Manager Name Role Phone Elieser [place] Primary Care Provider [phone] Encounter Details Date Type Department Care Team [...] on file Legal Sex Female 3:26 PM CONTINUING EDUCATION DEAN Gender Identity Not on file Sexual Orientation Not on file documented as of this encounter Plan of Treatment Upcoming Encounters Date Type Department Care Team (Late st Contact Info) Description 11/16/2024 10:20 AM CONTINUING EDUCATION DEAN Office Visit [facility] Medical Group Multispecialty Care - [facility] [address] [place] [address] Merlin Murrell DO [address] [place] [address] documented as of this encounter Visit Diagnoses Not on filedocumented in this encounter Care Teams Traffic I Manager Relationship Specialty [place] [address] [place] [address] PCP - General Physician Outside Cutter Medical 11/05/23 documented as of this encounter
--- OUTSIDE RECORDS SUMMARY | 2024-10-20 14:02 | XMS_ITS | Referral Summary ---
Author Organization [facility] Address [address] [place] [address] Care Team Providers Care Holder Pile Driving Name Role Phone Unavailable Primary Care Provider Unavailabl e Source Comments [facility],non-owned Affiliates and Associated Physician Practices is amultiple site organization consisting of ambulatory clinics and hospital sitesin [place], [place], [place] and [place]. This disclosure is being madepursuant to the Care Everywhere program and may not contain all information available regarding this patient. Last updated 18.[facility] [employer] Social History Tobacco Use Types Packs/Day Years Used Date Smoking Tobacco: Never Assessed Sex and Gender Information Value Date Recorded Sex Assigned at Not on file Gender Identity Not on file Sexual Orientation Not on file Plan of Treatment Not on file Georgina Murrell Personal/Family Self 1995 ([place]) [facility] [address] [place] [address]
--- OUTSIDE RECORDS SUMMARY | 2024-10-20 14:02 | XMS_ITS | Clinical Summary ---
Author Organization [facility] Address [address] [place] [address]. [place] [address] [place] [address] Care Team Providers Care Machine Assembler Name Role Phone Elieser [place] Primary Care Provider [phone] Allergies Active Allergy Reactions Criticality Noted Date Comments Almonds Hives,Itching,Swelli ng Medium 11/12/2023 Black [place] Pollen Allergy Skin Test Swelling Low 11/12/2023 [...] (Generic) 08/11/2013,08/12/2009 Influenza Adult (Generic) 09/16/2023,07/19/2019, 08/03/2015 Parental Health ([employer]) COVID-19 AD26 VACCINE 0.5 ML IM SUSP [...] on file Legal Sex Female 3:26 PM ENERGY AND SUSTAINABILITY MANAGER Gender Identity Not on file Sexual [...] st Contact Info) Description 11/16/2024 10:20 AM ENERGY AND SUSTAINABILITY MANAGER Office Visit [facility] Medical Group Multispecialty Care - [facility] [address] [place] [address] Merlin Murrell DO [address] [place] [address] Health Maintenance Due Date Last Done Comments [...] patient's age to complete this topic Insurance [facility] Care Teams Machine Assembler Relationship Specialty [place] [address] [place] [address] PCP - General Physician Osteopathic Medicine Teacher Medical 11/05/23
--- OUTSIDE RECORDS SUMMARY | 2024-10-20 14:02 | XMS_ITS | Encounter Summary ---
Author Organization [facility] Address [address] [place] [address]. [place] [address] [place] [address] Care Team Providers Care Ginger Farmer Name Role Phone Elieser Houston Primary Care Provider [phone] Encounter Details Date Type Department Care Team [...] on file Legal Sex Female 3:26 PM BAKERY TECHNICIAN Gender Identity Not on file Sexual Orientation Not on file documented as of this encounter Plan of Treatment Upcoming Encounters Date Type Department Care Team (Late st Contact Info) Description 11/16/2024 10:20 AM BAKERY TECHNICIAN Office [facility] Multispecialty Care - [facility] [address] [place] [address] Merlin Murrell DO [address] [place] [address] documented as of this encounter Visit Diagnoses Not on filedocumented in this encounter Care Teams Ginger Farmer Relationship Specialty [place] [address] [place] [address] PCP - General Physician Financial Services Technician Medical 11/05/23 documented as of this encounter
--- OUTSIDE RECORDS SUMMARY | 2024-10-20 14:02 | XMS_ITS | Encounter Summary ---
Author Organization [facility] Address [address] [place] [address]. [place] [address] [place] [address] Care Team Providers Care Manager Scientific Name Role Phone Elieser Houston Primary Care Provider [phone] Encounter Details Date Type Department Care Team (Late st Contact Info) Description 03/18/2024 MyChart Message [facility] [address] [place] [address] Merlin Murrell DO [address] [place] [address] Appt today 720 Social History Tobacco Use [...] on file Legal Sex Female 3:26 PM WRIST CLOSER Gender Identity Not on file Sexual Orientation Not on file documented as of this encounter Plan of Treatment Upcoming Encounters Date Type Department Care Team (Late st Contact Info) Description 11/16/2024 10:20 AM WRIST CLOSER [facility] [address] [place] [address] Merlin Murrell, DO [address] [place] [address] documented as of this encounter Visit Diagnoses Not on filedocumented in this encounter Care Teams Manager Scientific Relationship Specialty [place] [address] [place] [address] PCP - General Physician Scarf And Anneal Operator Medical 11/05/23 documented as of this encounter
--- OUTSIDE RECORDS SUMMARY | 2024-10-20 14:02 | XMS_ITS | Patient Health Summary ---
Author Organization [facility] Address [address] [place] [address] Care Team Providers Care Fuel Distribution System Operator Name Role Phone Unavailable Primary Care Provider Unavailabl e Note from [facility],non-owned Affiliates and Associated Physician Practices is amultiple site organization consisting of ambulatory clinics and hospital sitesin [place], [place], [place] and [place]. This disclosure is being madepursuant to the Care Everywhere program and may not contain all information available regarding this patient. Last updated 18.[facility] Social History Tobacco Use Types Packs/Day Years Used Date Smoking Tobacco: Never Assessed Sex and Gender Information Value Date Recorded Sex Assigned at Not on file Gender Identity Not on file Sexual Orientation Not on file
--- OUTSIDE RECORDS SUMMARY | 2024-10-20 14:02 | XMS_ITS | Clinical Summary ---
Author Organization [facility] Address [address] [place] [address] Care Team Providers Care Clinical Esthetician Name Role Phone Unavailable Primary Care Provider Unavailabl e Source Comments [facility],non-owned Affiliates and Associated Physician Practices is amultiple site organization consisting of ambulatory clinics and hospital sitesin [place], [place], [place] and [place]. This disclosure is being madepursuant to the Care Everywhere program and may not contain all information available regarding this patient. Last updated 18.[facility] op[facility] Social History Tobacco Use Types Packs/Day Years [...] this topic Georgina Murrell Personal/Family Self 1995 [facility] [address] [place] [address]
--- OUTSIDE RECORDS SUMMARY | 2024-10-20 14:03 | XMS_ITS | Encounter Summary ---
Author Organization [facility] Address [address] [place] [address]. [place] [address] [place] [address] Care Team Providers Care Coverage Specialist Name Role Phone Elieser Houston Primary Care Provider [phone] Encounter Details Date Type Department Care Team (Latest Contact Info) Description 01/23/2024 Kwanjit Message Enc [facility] Medical Group Multispecialty Care - [facility] [address] [place] [address] Merlin Murrell DO [address] [place] [address] Shortness of breath/wheezing Social History Tobacco Use [...] on file Legal Sex Female 3:26 PM MOBILE MECHANIC Gender Identity Not on file Sexual Orientation [...] do not improve. Thanks Dr. Joe Murrell [facility] Pulmonary Medicine * Merlin Murrell DO - [...] st Contact Info) Description 11/16/2024 10:20 AM MOBILE MECHANIC Office Visit [facility] Multispecialty Care - [facility] [address] [place] [address] Merlin Murrell DO [address] [place] [address] documented as of this encounter Visit Diagnoses Not on filedocumented in this encounter Care Teams Coverage Specialist Relationship Specialty [place] [address] [place] [address] PCP - General Physician Criminal Judge Medical 11/05/23 documented as of this encounter
--- OUTSIDE RECORDS SUMMARY | 2024-10-20 14:03 | XMS_ITS | Encounter Summary ---
Author Organization [facility] Address [address] [place] [address]. [place] [address] [place] [address] Care Team Providers Care Pig Furnace Operator Name Role Phone Elieser Houston Primary Care Provider [phone] Reason for Visit * Reason Onset Date Comments Record Request 01/03/2024 Encounter Details Date Type Department Care Team (Late st Contact Info) Description 01/03/2024 Telephone [facility] Medical [facility] Pul[facility] Specialty Clinic [address] [address] Merlin Murrell DO [address] [facility] [address] [place] [address] Record Request Social History Tobacco Use [...] on file Legal Sex Female 3:26 PM ROUGH ROUNDER Gender Identity Not on file Sexual Orientation Not on file documented as of this encounter Progress Notes * Marta Velazquez MA - 01/03/2024 2:59 PM CDT Records request from [facility] received and scanned into chart documented in this encounter Plan of Treatment Upcoming Encounters Date Type Department Care Team (Late st Contact Info) Description 11/16/2024 10:20 AM ROUGH ROUNDER Office Visit [facility] Medical Group Multispecialty Care - [facility] [address] [place] [address] Merlin Murrell DO [address] [place] [address] documented as of this encounter Visit Diagnoses Not on filedocumented in this encounter Care Teams Pig Furnace Operator Relationship Specialty [place] [address] [place] [address] PCP - General Physician Mold Construction Supervisor Medical 11/05/23 documented as of this encounter
--- OUTSIDE RECORDS SUMMARY | 2024-10-20 14:03 | XMS_ITS | Encounter Summary ---
Author Organization [facility] Address [address] [place] [address]. [place] [address] [place] [address] Care Team Providers Care Chuck Wagon Cook Name Role Phone Elieser Houston Primary Care Provider [phone] Encounter Details Date Type Department Care Team [...] on file Legal Sex Female 3:26 PM WHOLESALE ACCOUNT EXECUTIVE Gender Identity Not on file Sexual Orientation Not on file documented as of this encounter Plan of Treatment Upcoming Encounters Date Type Department Care Team (Late st Contact Info) Description 11/16/2024 10:20 AM WHOLESALE ACCOUNT EXECUTIVE Office Visit [facility] Medical Group Multispecialty Care - [facility] [address] [place] [address] Merlin Murrell DO [address] [place] [address] documented as of this encounter Visit Diagnoses Not on filedocumented in this encounter Care Teams Chuck Wagon Cook Relationship Specialty [place] [address] [place] [address] PCP - General Physician Sales Program Manager Medical 11/05/23 documented as of this encounter
--- OUTSIDE RECORDS SUMMARY | 2024-10-20 14:03 | XMS_ITS | Encounter Summary ---
Author Organization [facility] Address [address] [place] [address]. [place] [address] [place] [address] Care Team Providers Care Director Of Accreditation Name Role Phone Elieser Houston Primary Care Provider [phone] Encounter Details Date Type Department Care Team (Late Contact Info) Description 03/09/2024 Third Wave Technologiest Message Enc [facility] Family & Internal Medicine [address] [address] [place] [address] [place] [address] Prescription refill Social History Tobacco [...] on file Legal Sex Female 3:26 PM GRINDER NEEDLE TIP Gender Identity Not on file Sexual Orientation Not on file documented as of this encounter Plan of Treatment Upcoming Encounters Date Type Department Care Team (Late Contact Info) Description 11/16/2024 10:20 AM GRINDER NEEDLE TIP Office Visit [facility] Multispecialty Care - [address] [place] [address] Merlin Murrell DO [address] [facility] [address] [place] [address] documented as of this encounter Visit Diagnoses Not on filedocumented in this encounter Care Teams Director Of Accreditation Relationship Specialty Start [place] [address] [place] [address] PCP - General Physician Dyeing Machine Tender Medical 11/05/23 documented as of this encounter
--- OUTSIDE RECORDS SUMMARY | 2024-10-20 14:03 | XMS_ITS | Encounter Summary ---
Author Organization [facility] Address [address] [place] [address]. [place] [address] [place] [address] Care Team Providers Care Qa Automation Engineer Name Role Phone Elieser Houston Primary Care Provider Reason for Referral * Consultation (Routine) - Authorized Specialty Diagnoses / Procedures Referred By Contact Referred To Contact PULMONARY DISEASE / SLEEP & RESPIRATORY CARE Diagnoses Moderate persistent asthma without complication ([facility]/HCC) Procedures OFFICE/OUTPATIENT NEW LOW MDM 30-44 MINUTES OFFICE/OUTPT VISIT,NEW,LEVL IV OFFICE/OUTPT VISIT,NEW,LEVL V OFFICE/OUTPT VISIT,EST,LEVL III OFFICE/OUTPT VISIT,EST,LEVL IV OFFICE/OUTPT VISIT,EST,[place] [address] [place] [address] Phone: tel:[phone] fax:[phone] [facility] Multispecialty Care - [facility] [address], [address] [place] [address] Phone: tel: fax: Referral ID Status Reason Start Date Expiration Date Visits Requested Visits Authorized [id number] Authorized Specialty Services 11/12/2023 12/12/2024 99 99 Scheduling Instructions Pt lives in [place]. So closer to there is better. TY LAMP KEEPER Reason for Visit * Reason Comments New Patient Establish care Encounter Details Date Type Department Care Team (Late st Contact Info) Description 11/12/2023 7:00 AM SAFETY LAMP KEEPER Office Visit [facility] Medical Group Family & Internal Medicine [facility] [address] [place] [address] [place] [address] [place] [address] New Patient (Establish care/) Social [...] on file Legal Sex Female 3:26 PM SAFETY LAMP KEEPER Gender Identity Not on file Sexual Orientation Not on file documented as of this encounter Last Filed Vital Signs Vital Sign Reading Time Taken Comments Blood Pressure 141/83 11/12/2023 7:16 AM SAFETY LAMP KEEPER Pulse 77 11/12/2023 7:04 AM SAFETY LAMP KEEPER Temperature 37.1 ??C (98.7 ??F) 11/12/2023 7:04 AM CS T Respiratory Rate 16 11/12/2023 7:04 AM SAFETY LAMP KEEPER Oxygen Saturation 97% 11/12/2023 7:04 AM SAFETY LAMP KEEPER Inhaled Oxygen Concentration - - Weight 129.7 kg (286 lb) 11/12/2023 7:04 AM SAFETY LAMP KEEPER Height 167.6 cm (5' 6 ) 11/12/2023 7:04 AM SAFETY LAMP KEEPER Body Mass Index 46.16 11/12/2023 7:04 AM SAFETY LAMP KEEPER documented in this encounter Progress Notes * ANA Kamara - 11/12/2023 7:00 AM CST Reason for Visit: New Patient (Establish care/) History of Present Illness: 20-year-old for male with history of uncontrolled persistent intermittent asthma here for follow-up. She is transferring care from [place] to [facility]. She is currently on Symbicort and using albuterol rescue inhaler 2-3 times a day. She had referral to pulmonology but for what ever reason they were unable to schedule her for it so she got aggravated and left the practice and [facility]. She has recently been seen for an acute exacerbation of the asthma and [facility] and currently on steroids and Augmentin. Patient states she is no longer having any acute symptoms. Denies shortness of breath wheezing fever chills today. Patient's 18 weeks and is seeing NIB FINISHER. Her asthmatic symptoms seem to have gotten [...] 2 (two) times daily., Disp: , Rfl: Qvkmoav-Bewqtsgdffo-Ihbqyeacll (BREZTRI AEROSPHERE) 160-9-4.8 MCG/ACT Aerosol, Inhale 2 [...] Swelling Pecans Swelling Sulfa Antibiotics Unknown Black Curtis Pollen Allergy Skin Test Swelling Pt had [...] Onset Diabetes Father Dad Cancer Maternal Grandmother lAissa Cervical/stomach Cancer Maternal Grandfather Leigha Lung Cancer [...] Diagnoses/Impression: 1. Moderate persistent asthma without complication ([facility]) Ambulatory referral to Pulmonology (OTHER) Bruebdb-Xrghbmnxkau-Efkbeykkpk (BREZTRI AEROSPHERE) 160-9-4.8 MCG/ACT Aerosol 2. 18 weeks gestation of ([facility]) Recommendations and Plan: F/u obgyn as directed. [...] MG tablet cetirizine (ZYRTEC) 10 MG tablet Xmnwimx-Grqgxscjnry-Xvupuinrky (BREZTRI AEROSPHERE) 160-9-4.8 MCG/ACT Aerosol Reviewed and updated this visit by provider: ANA KAMARA Referring Provider: No ref. provider found PCP: ANA KAMARA Cosigned by Gerhard Song MD at 11/12/2023 12:01 PM SAFETY LAMP KEEPER TY LAMP KEEPER TY LAMP KEEPER TY LAMP KEEPER documented in this encounter Plan of Treatment Upcoming Encounters Date Type Department Care Team (Late st Contact Info) Description 11/16/2024 10:20 AM SAFETY LAMP KEEPER Office Visit [facility] Medical Group Multispecialty Care - [facility] [address] [place] [address] Merlin Murrell DO [address] [place] [address] Scheduled Referrals Name Type Priority Associated Diagnoses Orde r Schedule Ambulatory referral to Pulmonology (OTHER) Referral Routine Moderate persistent asthma without complication ([facility]) Ordered: 11/12/2023 documented as of this encounter Visit Diagnoses Diagnosis Moderate persistent asthma without complication ([facility]/HCC)- Primary Unspecified asthma 18 weeks gestation of ([facility]/H[facility]) state, incidental documented in this encounter Care Teams Qa Automation Engineer Relationship Specialty [place] [address] [place] [address] PCP - General Physician [employer] Director Medical 11/05/23 documented as of this encounter
--- OUTSIDE RECORDS SUMMARY | 2024-10-20 14:03 | XMS_ITS | Encounter Summary ---
Author Organization [facility] Address [address] [place] [address]. [place] [address] [place] [address] Care Team Providers Care African History Professor Name Role Phone Elieser [place] Primary Care [...] on file Legal Sex Female 3:26 PM GROUP DIRECTOR Gender Identity Not on file Sexual Orientation Not on file documented as of this encounter Plan of Treatment Upcoming Encounters Date Type Department Care Team (Late st Contact Info) Description 11/16/2024 10:20 AM GROUP DIRECTOR Office Visit [facility] Medical Group Multispecialty Care - [facility] [address] [place] [address] Merlin Murrell DO [address] [place] [address] documented as of this encounter Visit Diagnoses Not on filedocumented in this encounter Care Teams African History Professor Relationship Specialty Start [place] [address] [place] [address] PCP - General Physician Patient Portal Concierge Medical 11/05/23 documented as of this encounter
--- OUTSIDE RECORDS SUMMARY | 2024-10-20 14:03 | XMS_ITS | Encounter Summary ---
Author Organization [facility] Address [address] [place] [address]. [place] [address] [place] [address] Care Team Providers Care Rn Unit Manager Name Role Phone Elieser Houston Primary Care Provider Reason for Visit * Reason Comments Asthma * Consultation (Routine) - Authorized Specialty Diagnoses / Procedures Referred By Contact Referred To Contact PULMONARY DISEASE / SLEEP & RESPIRATORY CARE Diagnoses Moderate persistent asthma without complication ([facility]) Procedures OFFICE/OUTPATIENT NEW LOW MDM 30-44 MINUTES OFFICE/OUTPT VISIT,NEW,LEVL IV OFFICE/OUTPT VISIT,NEW,LEVL V OFFICE/OUTPT VISIT,EST,LEVL III OFFICE/OUTPT VISIT,EST,LEVL IV OFFICE/OUTPT VISIT,EST,[place] [address] [place] [address] Phone: tel:[phone] fax:[phone] [facility] - [address], [address] [place] [address] Phone: tel: fax: Referral ID Status Reason Start Date Expiration Date Visits Requested Visits Authorized [id number] Authorized Specialty Services 11/12/2023 12/12/2024 99 99 Encounter Details Date Type Department Care Team (Late st Contact Info) Description 12/19/2023 8:00 AM FIELD MANAGER [facility] [address] [place] [address] Merlin Murrell DO [address] [place] [address] Asthma Social History Tobacco Use Types Packs/Day [...] on file Legal Sex Female 3:26 PM FIELD MANAGER Gender Identity Not on file Sexual Orientation Not on file documented as of this encounter Last Filed Vital Signs Vital Sign Reading Time Taken Comments Blood Pressure 118/68 12/19/2023 7:53 AM FIELD MANAGER Pulse 92 12/19/2023 7:53 AM FIELD MANAGER Temperature 36.3 ??C (97.4 ??F) 12/19/2023 7:53 AM CS T Respiratory Rate 18 12/19/2023 7:53 AM FIELD MANAGER Oxygen Saturation 97% 12/19/2023 7:53 AM FIELD MANAGER RA Inhaled Oxygen Concentration - - Weight 131.1 kg (289 lb) 12/19/2023 7:53 AM FIELD MANAGER Height 167.6 cm (5' 6 ) 12/19/2023 7:53 AM FIELD MANAGER Body Mass Index 46.65 12/19/2023 7:53 AM FIELD MANAGER documented in this encounter Patient Instructions * Patient Instructions* Merlin Murrell DO - 12/19/2023 8:00 AM FIELD MANAGER Images from the original note were not [...] questions or concerns please send us a [employer] message for the most timely response. However, you can always call us at ([phone]) during office hours It was my pleasure [...] use a QR scanner sharon through the [employer]). If you don't have a smart phone and want to leave a review for me you can always search Dr. Joe Murrell DO Google review to let us know how we are doing. Sincerely, Dr. Jeo Murrell D MANAGER documented in this encounter Progress Notes * Merlin Murrell DO - 12/19/2023 8:00 AM CST [facility] PULMONARY MEDICINE CLINIC NOTE History of [...] to see Dr. Moralez / [place] in [place], [place]. -- became in jul 2023, since [...] breztri 2 puffs bid. We discussed no fdc safety data on several component -- notes [...] asbestos. Pets: + lehman retriever / and chinese clay. + allergy to cat dander. Occ: + RT, works at [employer] reviewed: None to review. Testing/Data reviewed: [...] Swelling Pecans Swelling Sulfa Antibiotics Unknown Black [place] Pollen Allergy Skin Test Swelling Pt had allergy testing with this showing up as an allergy Shellfish Allergy Unknown Pt had allergy testing with this showing as an allergy Immunization History Administered Date(s) Administered Dtap (Acel-Immune) 05/30/2000 Dtp (Generic) 1995 Dtp/Hib (Tet[employer]) 1995, 02/14/1996, 09/11/1996 Hepatitis B Pediatric 1995, 1995, 02/14/1996 Hib (Generic) 1995 Influenza 08/12/2009, 08/11/2013 Influenza Adult (Generic) 08/03/2015, 07/19/2019, 09/16/2023 CG Scholar ([employer]) COVID-19 AD26 VACCINE 0.5 [...] from Dr. Moralez. In [facility]. -- to trelegy 200mcg dose, 1 puff [...] the future. RTC 3m Dr. Joe Murrell [facility] Pulmonary Medicine D MANAGER documented in this encounter Plan of Treatment Upcoming Encounters Date Type Department Care Team (Late st Contact Info) Description 11/16/2024 10:20 AM FIELD MANAGER Office Visit [facility] Multispecialty Care - [facility] [address] [place] [address] Merlin Murrell DO [address] [place] [address] documented as of this encounter Visit Diagnoses Diagnosis Moderate persistent asthma without complication ([facility])- Primary Unspecified asthma Morbid (severe) obesity due to excess calories ([facility]) Allergic rhinitis due to pollen, unspecified seasonality , unspecified gestational age ([facility]) documented in this encounter Care Teams Rn Unit Manager Relationship Specialty [place] [address] [place] [address] PCP - General Physician Hand Tier Medical 11/05/23 documented as of this encounter
--- OUTSIDE RECORDS SUMMARY | 2024-10-20 14:03 | XMS_ITS | Encounter Summary ---
Author Organization [facility] Address [address] [place] [address]. [place] [address] [place] [address] Care Team Providers Care Forestry Crew Chief Name Role Phone Elieser Houston Primary Care Provider [phone] Encounter Details Date Type Department Care Team [...] on file Legal Sex Female 3:26 PM DEICER REPAIRER Gender Identity Not on file Sexual Orientation Not on file documented as of this encounter Plan of Treatment Upcoming Encounters Date Type Department Care Team (Late st Contact Info) Description 11/16/2024 10:20 AM DEICER REPAIRER Office Visit [facility] Medical Group Multispecialty Care - [facility] [address] [place] [address] Merlin Murrell DO [address] [place] [address] documented as of this encounter Visit Diagnoses Not on filedocumented in this encounter Care Teams Forestry Crew Chief Relationship Specialty [place] [address] [place] [address] PCP - General Physician Head Buyer Tobacco Medical 11/05/23 documented as of this encounter
--- OUTSIDE RECORDS SUMMARY | 2024-10-20 14:03 | XMS_ITS | Encounter Summary ---
Author Organization [facility] Address [address] [place] [address]. 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 Gender Identity Not on file Sexual Orientation Not on file documented as of this encounter Plan of Treatment Upcoming Encounters Date Type Department Care Team (Late Contact Info) Description 11/16/2024 10:20 AM GREEN BUILDING DESIGN SPECIALIST Office Visit [facility] Medical Group Multispecialty Care - [facility] [address] [place] [address] Merlin Murrell DO [address] [place] [address] documented as of this encounter Procedures Procedure Name Priority Date/Time Associated Diagnosis Comments ULTRASOUND GENERIC (SCAN ORDER) 03/10/2024 documented in this encounter Results * ULTRASOUND GENERIC (SCAN ORDER) (03/10/2024) Anatomical Region Laterality Modality Other 03/10/2024 [facility] Scanned SCANNING Final Resu lt documented in this encounter Visit Diagnoses Not on filedocumented in this encounter Care Teams Link Trainer Operator Relationship Specialty [place] [address] [place] [address] PCP - General Physician Winding Inspector And Tester Medical 11/05/23 documented as of this encounter
== END 2024-10-13 09:48 | disposition home or self-care (01) ==
PROVIDERS: Emergency Provider Nurse Practitioner Family
DX: J06.9 Acute upper respiratory infection, unspecified (principal); J45.901 Unspecified asthma with (acute) exacerbation; F32.A Depression, unspecified; E66.01 Morbid (severe) obesity due to excess calories; Z68.41 Body mass index [BMI] 40.0-44.9, adult
CPT/HCPCS: 99213; G0463